=== PATIENT | male | born 1945 | race Two or more races ===

== ENCOUNTER 2018-04-27 14:46 | Inpatient (IN) | payer MEDICARE ==
--- NOTE | 2018-04-27 15:25 | C.PDOC ---
Time Seen by Provider: 04/27/18 15:04 Chief Complaint (Nursing): Medical Clearance Past Medical History Vital Signs: Last Vital Signs Temp 98.4 F 04/27/18 14:50 Pulse 105 H 04/27/18 14:50 Resp 20 04/27/18 14:50 BP 122/64 04/27/18 14:50 Pulse Ox 100 04/27/18 14:50 - Medical History PMH: Anemia, Arthritis, COPD, HTN, Hypercholesterolemia Surgical History: Cholecystectomy - Social History Hx Alcohol Use: No (Ex drinker) Hx Substance Use: No - Immunization History Hx Tetanus Toxoid Vaccination: No Hx Influenza Vaccination: Yes (12/2017) Hx Pneumococcal Vaccination: Yes (12/2017) ED Course And Treatment O2 Sat by Pulse Oximetry: 100 Disposition - Disposition
--- NOTE | 2018-04-27 15:26 | C.PDOC ---
History Of Present Illness 73 year old male brought in by request of Dr. Dasilva due to blood work showing a hemoglobin of 5.4. Patient has been experiencing SOB, weakness, and lightheadedness. Patient's states that they were in the [place] when these symptoms began. He has had CVA in the past and has been diagnosed with emphysema. Patient is not currently on a pacemaker and has no GI bleeds. He has a past medical history of diabetes, HTN, and HLD. Patient denies experiencing vomiting or diarrhea. Time Seen by Provider: 04/27/18 15:04 Chief Complaint (Nursing): Medical Clearance History Per: Patient, Family History/Exam Limitations: no limitations Onset/Duration Of Symptoms: Hrs Current Symptoms Are (Timing): Still Present Additional History Per: Patient, Family Past Medical History Reviewed: Historical Data, Nursing Documentation, Vital Signs Vital Signs: Last Vital Signs Temp 98.4 F 04/27/18 14:50 Pulse 105 H 04/27/18 14:50 Resp 20 04/27/18 14:50 BP 122/64 04/27/18 14:50 Pulse Ox 100 04/27/18 14:50 - Medical History PMH: Anemia, Arthritis, COPD, HTN, Hypercholesterolemia Surgical History: Cholecystectomy Family History: States: No Known Family Hx - Social History Hx Alcohol Use: No (Ex drinker) Hx Substance Use: No - Immunization History Hx Tetanus Toxoid Vaccination: No Hx Influenza Vaccination: Yes (12/2017) Hx Pneumococcal Vaccination: Yes (12/2017) Review Of Systems Constitutional: Positive for: Weakness. Negative for: Fever, Chills Cardiovascular: Positive for: Light Headedness. Negative for: Chest Pain, Palpitations Respiratory: Positive for: Shortness of Breath Gastrointestinal: Negative for: Nausea, Vomiting, Diarrhea Neurological: Positive for: Dizziness. Negative for: Weakness, Numbness Physical Exam - Physical Exam Additional Physical Exam Comments: Constitutional: No acute distress. Pale skin. Head: Normocephalic. Atraumatic. Eyes: PERRL. ENT: Moist mucous membranes. Neck: Supple. Cardiovascular: Regular rate. Radial pulse 2+ bilaterally. Chest: No tenderness. Respiratory: Crackles. GI: Soft. Nontender. Nondistended. Back: No CVA tenderness. Musculoskeletal: Bilateral lower extremity pitting edema. Skin: No rash. Neurologic: Alert, no focal deficit. ED Course And Treatment - Laboratory Results Result Diagrams: 04/27/18 15:33 02 15:33 O2 Sat by Pulse Oximetry: 100 (RA) Medical Decision Making Medical Decision Making: Plan: Labs ordered with type and screen. EKG and CXR ordered for patient. EKG: Sinus rhythm 91bpm , no ST elevations. CXR: IMPRESSION:No acute pulmonary pathology noted. Mild cardiomegaly probable. Other findings as above. Consented for transfusion. Dr. Lambert consulted. Dr. Jay accepts patient to her service. Disposition - Disposition Disposition: HOSPITALIZED Disposition Time: 15:33 Condition: GUARDED - Clinical Impression Clinical Impression: Symptomatic anemia - Scribe Statement The provider has reviewed the documentation as recorded by the Scribe (Selina Abdi) All medical record entries made by the Scribe were at my direction and personally dictated by me. I have reviewed the chart and agree that the record accurately reflects my personal performance of the history, physical exam, medical decision making, and the department course for this patient. I have also personally directed, reviewed, and agree with the discharge instructions and d isposition.
[2018-04-27 15:38] LABS: BASO % 0.9 % (0.0-2.0); EOS # 0.1 K/uL (0.0-0.7); EOS % 1.3 % (0.0-4.0); LYMPH # 0.7 K/uL (1.0-4.3); LYMPH % 16.1 % (20.0-40.0); MEAN CELL VOLUME 79.8 fL (80.0-94.0); MEAN CORPUSCULAR HGB CONC 28.8 g/dL (33.0-37.0); MEAN PLATELET VOLUME 9.6 fL (7.2-11.7); MONO # 0.4 K/uL (0.0-0.8); MONO % 8.9 % (0.0-10.0); NEUT # 3.4 K/uL (1.8-7.0); NEUT % 72.8 % (50.0-75.0); NRBC % 0.2 % (0.0-2.0); RBC 2.24 Mil/uL (4.40-5.90); RED CELL DISTRIBUTION WIDTH 19.5 % (11.5-14.5); WHITE BLOOD COUNT 4.7 K/uL (4.8-10.8)
[2018-04-27 15:47] LABS: PROTHROMBIN TIME 11.4 SECONDS (9.7-12.2)
[2018-04-27 15:49] LABS: ALB/GLOB RATIO 1.5 (1.0-2.1); ALBUMIN 4.3 g/dL (3.5-5.0); ALT/SGPT 25 U/L (21-72); AST/SGOT 16 U/L (17-59); BLOOD UREA NITROGEN 29 mg/dL (9-20); CALCIUM 9.8 mg/dl (8.6-10.4); GFR NON-AFRICAN AMERICAN 59
[2018-04-27 15:50] LABS: HEMOGLOBIN 5.1 g/dL (12.0-18.0)
--- NOTE | 2018-04-27 16:00 | RAD ---
Date of service: 04/27/2018 HISTORY: Anemia COMPARISON: No prior. FINDINGS: LUNGS: No active pulmonary disease. Lung volumes lower limits of normal. PLEURA: No significant pleural effusion identified, no pneumothorax apparent. CARDIOVASCULAR: No aortic atherosclerotic calcification present. Mild cardiomegaly suspect. No significant appearing pulmonary venous congestion. OSSEOUS STRUCTURES: Bilateral shoulder arthrosis. Right sternoclavicular hypertrophic arthrosis. VISUALIZED UPPER ABDOMEN: Normal. OTHER FINDINGS: None. IMPRESSION: No acute pulmonary pathology noted. Mild cardiomegaly probable Other findings as above.
[2018-04-27 16:01] LABS: B-TYPE NATRIURETIC PEPTIDE 236 pg/mL (0-900); CK-MB 4.41 ng/mL (0.0-3.38)
--- NOTE | 2018-04-27 18:50 | CP.PCM.HP ---
History of Present Illness - History of Present Illness History of Present Illness: cc: Weakness HPI: Pt is a 73 year old male who presented to Dr. Dasivla with a complaint of weakness. Pt had a hemoglobin of 5.7. His most recent hemoglobin in January was >11. Pt had anemia while in [facility] [place] last year, and per family had an EGD and Colonoscopy and nothing found. He was treated with iron infusion. Pt states that over the last one month he has been increasingly sob to the point that family has had to bathe him. Pt however denies any melena or vomiting blood. PT recenlty had his b jimy discontinues as some of his symptoms were thought to be due to b jimy. Medical Hx: Osteoarthritis Chronic Kidney Disease TIA history HTN Hyperlipidemia Diabetes 2 Surgical Hx: Gallbladder 2013 Family Hx: Mother-Vaginal cancer Father-cancer Social Hx: Smoke- quit 1999 No ETOH No Drugs Allergies: Sulfa Medications: Lantus 20 units qan Losartan 100mg qd Epidra 15 units with dinner Metformin 1000 bid aspitin 81 qd Present on Admission - Present on Admission Any Indicators Present on Admission: No History of DVT/PE: No History of Uncontrolled Diabetes: No Urinary Catheter: No Decubitus Ulcer Present: No Decubitus Ulcer Stage: Unstageable History Surgical Site Infection Following: None Review of Systems - Constitutional Constitutional: Fatigue, Lethargy, Weakness - EENT Eyes: absent: Diplopia Ears: absent: Decreased Hearing Nose/Mouth/Throat: absent: Nasal Congestion, Dry Mouth - Cardiovascular Cardiovascular: Dyspnea on Exertion, Lightheadedness. absent: Chest Pain, Edema - Respiratory Respiratory: Dyspnea, Wheezing - Gastrointestinal Gastrointestinal: absent: Abdominal Pain, Diarrhea - Genitourinary Genitourinary: absent: Change in Urinary Stream, Freq UTI - Musculoskeletal Musculoskeletal: Back Pain. absent: Abnormal Gait - Integumentary Integumentary: absent: Skin Ulcer - Neurological Neurological: Dizziness. absent: Abnormal Speech - Psychiatric Psychiatric: absent: Abnormal Sleep Pattern - Hematologic/Lymphatic Hematologic: absent: Easy Bleeding, Easy Bruising, Lymphadenopathy Past Patient History - Past Social History Smoking Status: Former Smoker - CARDIAC Hx Hypercholesterolemia: Yes Hx Hypertension: Yes - PULMONARY Hx Chronic Obstructive Pulmonary Disease (COPD): Yes - ENDOCRINE/METABOLIC Hx Diabetes Mellitus Type 2: Yes - HEMATOLOGICAL/ONCOLOGICAL Hx Anemia: Yes - MUSCULOSKELETAL/RHEUMATOLOGICAL Hx Arthritis: Yes - PSYCHIATRIC Hx Substance Use: No - SURGICAL HISTORY Hx Cholecystectomy: Yes - ANESTHESIA Hx Anesthesia: Yes Hx Anesthesia Reactions: No Meds Allergies/Adverse Reactions: Allergies Allergy/AdvReac Type Severity Reaction Status Date / Time Sulfa (Sulfonamide Allergy Severe ANAPHYLAXIS Verified 04/27/18 14:54 Antibiotics) Physical Exam - Constitutional Appears: No Acute Distress - Eye Exam Eye Exam: EOMI Additional comments: pale conjunctiva - Respiratory Exam Respiratory Exam: Clear to Auscultation Bilateral, NORMAL BREATHING PATTERN. absent: Decreased Breath Sounds, Rales, Stridor - Cardiovascular Exam Cardiovascular Exam: REGULAR RHYTHM, RRR, +S1, +S2. absent: JVD, Rubs - GI/Abdominal Exam GI & Abdominal Exam: Hernia, Normal Bowel Sounds, Soft Results - Vital Signs Recent Vital Signs: Last Vital Signs Temp 98.4 F 04/27/18 18:22 Pulse 88 04/27/18 18:22 Resp 18 04/27/18 18:22 BP 159/63 H 04/27/18 18:22 Pulse Ox 100 04/27/18 18:22 - Labs Result Diagrams: 04/27/18 15:33 04/27/18 15:33 Labs: Laboratory Results - last 24 hr 04/27/18 04/27/18 04/27/18 15:33 15:33 15:33 WBC 4.7 L RBC 2.24 L Hgb 5.1 L* Hct 17.9 L MCV 79.8 L MCH 23.0 L MCHC 28.8 L RDW 19.5 H Plt Count 275 MPV 9.6 Neut % (Auto) 72.8 Lymph % (Auto) 16.1 L [place] % (Auto) 8.9 Eos % (Auto) 1.3 Baso % (Auto) 0.9 Neut # (Auto) 3.4 Lymph # (Auto) 0.7 L [place] # (Auto) 0.4 Eos # (Auto) 0.1 Baso # (Auto) 0.0 PT 11.4 INR 1.0 APTT 32 Sodium 142 Potassium 4.6 Chloride 105 Carbon Dioxide 21 L Anion Gap 20 BUN 29 H Creatinine 1.2 Est GFR ( Amer) > 60 Est GFR (Non-Af Amer) 59 Random Glucose 114 H Calcium 9.8 Total Bilirubin 0.2 AST 16 L ALT 25 Alkaline Phosphatase 110 Total Creatine Kinase 155 CK-MB (Mass) 4.41 H Troponin I < 0.0120 NT-Pro-B Natriuret Pep 236 Total Protein 7.2 Albumin 4.3 Globulin 2.9 Albumin/Globulin Ratio 1.5 Blood Type Blood Type Confirm Antibody Screen 04/27/18 15:33 WBC RBC Hgb Hct MCV MCH MCHC RDW Plt Count MPV Neut % (Auto) Lymph % (Auto) [place] % (Auto) Eos % (Auto) Baso % (Auto) Neut # (Auto) Lymph # (Auto) [place] # (Auto) Eos # (Auto) Baso # (Auto) PT INR APTT Sodium Potassium Chloride Carbon Dioxide Anion Gap BUN Creatinine Est GFR ( Amer) Est GFR (Non-Af Amer) Random Glucose Calcium Total Bilirubin AST ALT Alkaline Phosphatase Total Creatine Kinase CK-MB (Mass) Troponin I NT-Pro-B Natriuret Pep Total Protein Albumin Globulin Albumin/Globulin Ratio Blood Type A POSITIVE Blood Type Confirm A POSITIVE Antibody Screen Negative Assessment & Plan - Assessment and Plan (Free Text) Assessment: Anemia acute on chronic most recent HG in January over 11 Pt had EGD and Colonocopy In and told no acive GI bleeding over a year ago who he had similar issues oxygen COPD; nebs Dr Dasilva bp; losartan hame some issues with b jimy per daughter other issues abd hernia back pain DM; hold insulin as npo but will cover with scale for now Gi; Fausto on consult, I discussed case over the phone with him. Cardio +ck mb but negative tropoin echo per cardio called his cardio on consult
[2018-04-27] MEDS ORDERED: Glucagon Recombinant 1 mg Inj IM PRN (19:42)
[2018-04-27] MEDS ORDERED: Dextrose 50% SYRINGE Inj (50 ml) IV PRN (19:42)
--- NOTE | 2018-04-27 20:12 | CP.PCM.CON ---
History of Present Illness - History of Present Illness History of Present Illness: Chief complaint: Shortness of breath HPI: 73-year-old male with history of osteoarthritis, chronic kidney disease, hypertension, hyperlipidemia, CAD, diabetes came to the office yesterday in my office, at that time patient was noted to have severe anemia, hemoglobin level was low, and patient came to the emergency room. Patient was complaining of increasing shortness of breath. He has a significant history of smoking. Almost a 2 pack/day for almost 45 years. Patient currently does not have a history of COPD, but he having more symptoms of shortness of breath increasingly worsening recently over the course of 2 years. He was seen by neurocritical care physician recently. He has a history of stent in the past. Cardiology point of view he is stable. He is having some difficult time even walking. Getting up and moving causing increasing tiredness fatigue and weakness. He is not using any oxygen or nebulizer in the house. Past medical history: Anemia iron deficiency history of an infection. CAD, COPD Surgical history: Cholecystectomy, prostate surgery Allergy allergic to sulfa Family history: Parents had a history of pelvic and colon cancer. Currently has 3 live siblings. He has 7 kids. Social history: Patient has a history of 2 pack/day smoking history for about 35 years, he quit 2000 Denies any alcohol. Review of system: Patient is having significant dyspnea even at rest. Difficult time in sleeping. He does up in the daytime easily. Difficult time in standing up and walking. His functional capacity being increasingly getting restricted now. He is having limited mobility because of the weakness tiredness fatigability. Shortness of breath noted. No urinary symptoms, but the constipation noted. Current medications noted from the chart. He is taking insulin, losartan, Apidra, metformin, and aspirin Clinical examination: Patient has a pale mucosa. Blood pressure stable. Chest decreased air entry in the lung morel noted. Heart sounds are regular Nontender abdomen. 1+ pedal edema noted in the lungs patient has a significant wheezing also noted Patient labs reviewed Hemoglobin is 5.1. Chest x-ray showing evidence of decreased lung volumes on the right side Assessment and recommendation: 73-year-old male with a history of possible CAD, hypertension diabetes. Peripheral neuropathy. History of significant smoking history. Underlying COPD likely. Emphysematous lung changes cannot be ruled out. I recommended CT scan of the lungs. Patient is now admitted to the hospital with acute shortness of breath. Severe anemia. GI evaluation is ongoing. Also receiving Protonix, blood transfusion. Cardiology evaluation is on. Continue the current treatment. We will follow the patient Past Patient History - Past Social History Smoking Status: Former Smoker - CARDIAC Hx Hypercholesterolemia: Yes Hx Hypertension: Yes - PULMONARY Hx Chronic Obstructive Pulmonary Disease (COPD): Yes - ENDOCRINE/METABOLIC Hx Diabetes Mellitus Type 2: Yes - HEMATOLOGICAL/ONCOLOGICAL Hx Anemia: Yes - MUSCULOSKELETAL/RHEUMATOLOGICAL Hx Arthritis: Yes - PSYCHIATRIC Hx Substance Use: No - SURGICAL HISTORY Hx Cholecystectomy: Yes - ANESTHESIA Hx Anesthesia: Yes Hx Anesthesia Reactions: No Meds Allergies/Adverse Reactions: Allergies Allergy/AdvReac Type Severity Reaction Status Date / Time Sulfa (Sulfonamide Allergy Severe ANAPHYLAXIS Verified 04/27/18 14:54 Antibiotics) Beta-Blockers Allergy ANAPHYLAXIS Verified 04/27/18 20:03 (Beta-Adrenergic Bloc - Medications Medications: Current Medications Acetaminophen (Tylenol 325mg Tab) 650 mg PO ONCE ONE Stop: 04/27/18 23:31 Dextrose (Dextrose 50% Inj) 0 ml IV STAT PRN; Protocol PRN Reason: Hypoglycemia Protocol Dextrose (Glutose 15) 0 gm PO ONCE PRN; Protocol PRN Reason: Hypoglycemia Protocol Diphenhydramine HCl (Benadryl) 12.5 mg PO ONCE ONE Stop: 04/27/18 23:31 Glucagon (Glucagen Diagnostic Kit) 0 mg IM STAT PRN; Protocol PRN Reason: Hypoglycemia Protocol Sodium Chloride (Sodium Chloride 0.45%) 1,000 mls @ 50 mls/hr IV .Q20H FARRUKH Dextrose (Dextrose 5% In Water 1000 Ml) 1,000 mls @ 0 mls/hr IV .Q0M PRN; Protocol PRN Reason: Hypoglycemia Protocol Insulin Human Regular (Novolin R) 0 unit SC ACHS FARRUKH; Protocol Losartan Potassium (Cozaar) 100 mg PO DAILY FARRUKH Pantoprazole Sodium (Protonix Inj) 40 mg IVP DAILY FARRUKH Results - Vital Signs Recent Vital Signs: Last Vital Signs Temp 98.4 F 04/27/18 18:22 Pulse 88 04/27/18 18:22 Resp 18 04/27/18 18:22 BP 159/63 H 04/27/18 18:22 Pulse Ox 100 04/27/18 18:22 - Labs Result Diagrams: 04/27/18 15:33 04/27/18 15:33 Labs: Laboratory Results - last 24 hr 04/27/18 04/27/18 04/27/18 15:33 15:33 15:33 WBC 4.7 L RBC 2.24 L Hgb 5.1 L* Hct 17.9 L MCV 79.8 L MCH 23.0 L MCHC 28.8 L RDW 19.5 H Plt Count 275 MPV 9.6 Neut % (Auto) 72.8 Lymph % (Auto) 16.[address] [place] % (Auto) 8.9 Eos % (Auto) 1.3 Baso % (Auto) 0.9 Neut # (Auto) 3.4 Lymph # (Auto) 0.[address] [place] # (Auto) 0.4 Eos # (Auto) 0.1 Baso # (Auto) 0.0 PT 11.4 INR 1.0 APTT 32 Sodium 142 Potassium 4.6 Chloride 105 Carbon Dioxide 21 L Anion Gap 20 BUN 29 H Creatinine 1.2 Est GFR ( Amer) > 60 Est GFR (Non-Af Amer) 59 Random Glucose 114 H Calcium 9.8 Total Bilirubin 0.2 AST 16 L ALT 25 Alkaline Phosphatase 110 Total Creatine Kinase 155 CK-MB (Mass) 4.41 H Troponin I < 0.0120 NT-Pro-B Natriuret Pep 236 Total Protein 7.2 Albumin 4.3 Globulin 2.9 Albumin/Globulin Ratio 1.5 Blood Type Blood Type Confirm Antibody Screen 04/27/18 15:33 WBC RBC Hgb Hct MCV MCH MCHC RDW Plt Count MPV Neut % (Auto) Lymph % (Auto) [place] % (Auto) Eos % (Auto) Baso % (Auto) Neut # (Auto) Lymph # (Auto) [place] # (Auto) Eos # (Auto) Baso # (Auto) PT INR APTT Sodium Potassium Chloride Carbon Dioxide Anion Gap BUN Creatinine Est GFR ( Amer) Est GFR (Non-Af Amer) Random Glucose Calcium Total Bilirubin AST ALT Alkaline Phosphatase Total Creatine Kinase CK-MB (Mass) Troponin I NT-Pro-B Natriuret Pep Total Protein Albumin Globulin Albumin/Globulin Ratio Blood Type A POSITIVE Blood Type Confirm A POSITIVE Antibody Screen Negative
[2018-04-27] MEDS: (Novolin R) Insulin Human Regular 100 units/ml vial SC SCH (22:35)
[2018-04-27] MEDS ORDERED: DiphenhydrAMINE 12.5 mg/5 ml LIQ UD (5 ml) PO ONE (23:30)
[2018-04-28] MEDS ORDERED: DiphenhydrAMINE 12.5 mg/5 ml LIQ UD (5 ml) PO ONE (00:01)
[2018-04-28] MEDS: Albuterol-Ipratrop 3 mg / 0.5 (3 ml) UD INH SCH ×4 (01:10→20:30)
[2018-04-28] MEDS: Sodium Chloride 0.45% 1,000 ML IV SCH (05:30)
--- NOTE | 2018-04-28 07:44 | CP.PCM.CON ---
History of Present Illness - History of Present Illness History of Present Illness: This is a 73 year old man known to me from the office who was admitted with anemia. Patient noted progressive shortness of breath dizziness and lightheadedness over the past month. He denies having abdominal pain, nausea, vomiting, heartburn, diarrhea, constipation, rectal bleeding and melena. He was referred to the ER when routine blood work showed a HGB of 5.4. Recent blood work in January, showed HGB 11. The last colonosocpy was in 2010 and showed diverticulosis and hyperplastic polyps. The last EGD was in 2009 and showed non-erosive gastritis and a duodenal ulcer. He was treated for H pylori infection at that time. 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 Review of Systems - Review of Systems All systems: reviewed and no additional remarkable complaints except - Constitutional Constitutional: Fatigue, Weakness - EENT Eyes: absent: Diplopia Ears: absent: Decreased Hearing Nose/Mouth/Throat: absent: Dry Mouth - Cardiovascular Cardiovascular: Dyspnea on Exertion, Lightheadedness. absent: Chest Pain - Respiratory Respiratory: Dyspnea, Wheezing - Gastrointestinal Gastrointestinal: absent: Abdominal Pain, Constipation, Diarrhea, Heartburn, Hematochezia, Melena, Nausea, Vomiting - Genitourinary Genitourinary: absent: Change in Urinary Stream - Musculoskeletal Musculoskeletal: Back Pain Past Patient History - Past Medical History & Family History Past Medical History?: Yes - Past Social History Smoking Status: Former Smoker - CARDIAC Hx Hypercholesterolemia: Yes Hx Hypertension: Yes - PULMONARY Hx Chronic Obstructive Pulmonary Disease (COPD): Yes - ENDOCRINE/METABOLIC Hx Diabetes Mellitus Type 2: Yes - HEMATOLOGICAL/ONCOLOGICAL Hx Anemia: Yes - MUSCULOSKELETAL/RHEUMATOLOGICAL Hx Arthritis: Yes - PSYCHIATRIC Hx Substance Use: No - SURGICAL HISTORY Hx Cholecystectomy: Yes - ANESTHESIA Hx Anesthesia: Yes Hx Anesthesia Reactions: No Meds Allergies/Adverse Reactions: Allergies Allergy/AdvReac Type Severity Reaction Status Date / Time Sulfa (Sulfonamide Allergy Severe ANAPHYLAXIS Verified 04/27/18 14:54 Antibiotics) Beta-Blockers Allergy ANAPHYLAXIS Verified 04/27/18 20:03 (Beta-Adrenergic Bloc - Medications Medications: Current Medications Albuterol/Ipratropium (Duoneb 3 Mg/0.5 Mg (3 Ml) Ud) 3 ml INH RQ6 FARRUKH Last Admin: 04/28/18 01:10 Dose: Not Given Dextrose (Dextrose 50% Inj) 0 ml IV STAT PRN; Protocol PRN Reason: Hypoglycemia Protocol Dextrose (Glutose 15) 0 gm PO ONCE PRN; Protocol PRN Reason: Hypoglycemia Protocol Glucagon (Glucagen Diagnostic Kit) 0 mg IM STAT PRN; Protocol PRN Reason: Hypoglycemia Protocol Sodium Chloride (Sodium Chloride 0.45%) 1,000 mls @ 50 mls/hr IV .Q20H FARRUKH Last Admin: 04/28/18 05:30 Dose: 50 mls/hr Dextrose (Dextrose 5% In Water 1000 Ml) 1,000 mls @ 0 mls/hr IV .Q0M PRN; Pr otocol PRN Reason: Hypoglycemia Protocol Insulin Human Regular (Novolin R) 0 unit SC ACHS FARRUKH; Protocol Last Admin: 04/27/18 22:35 Dose: Not Given Losartan Potassium (Cozaar) 100 mg PO DAILY [facility] Pantoprazole Sodium (Protonix Inj) 40 mg IVP DAILY [facility] Tiotropium [place] (Spiriva) 18 mcg INH RQ24 FARRUKH Tiotropium [place] (Spiriva Inhalation Handihaler Device) 1 inhaler INH ONCE ONE Stop: 04/28/18 08:01 Physical Exam - Constitutional Appears: No Acute Distress - Head Exam Head Exam: ATRAUMATIC, NORMOCEPHALIC - Eye Exam Eye Exam: EOMI, PERRL - Neck Exam Neck exam: Negative for: Lymphadenopathy, Thyromegaly - Respiratory Exam Respiratory Exam: NORMAL BREATHING PATTERN. absent: Rales, Rhonchi, Wheezes - Cardiovascular Exam Cardiovascular Exam: REGULAR RHYTHM, +S1, +S2. absent: Gallop, Rubs, Systolic Murmur - GI/Abdominal Exam GI & Abdominal Exam: Distended, Normal Bowel Sounds, Soft. absent: Mass, Organomegaly, Tenderness - Rectal Exam Rectal Exam: Deferred - Extremities Exam Extremities exam: Negative for: calf tenderness, pedal edema Results - Vital Signs Recent Vital Signs: Last Vital Signs Temp 98.4 F 04/28/18 05:15 Pulse 76 04/28/18 05:15 Resp 20 04/28/18 05:15 BP 140/76 04/28/18 05:15 Pulse Ox 100 04/27/18 23:35 - Labs Result Diagrams: 04/27/18 15:33 04/27/18 15:33 Labs: Laboratory Results - last 24 hr 04/27/18 04/27/18 04/27/18 15:33 15:33 15:33 WBC 4.7 L RBC 2.24 L Hgb 5.1 L* Hct 17.9 L MCV 79.8 L MCH 23.0 L MCHC 28.8 L RDW 19.5 H Plt Count 275 MPV 9.6 Neut % (Auto) 72.8 Lymph % (Auto) 16.1 L [place] % (Auto) 8.9 Eos % (Auto) 1.3 Baso % (Auto) 0.9 Neut # (Auto) 3.4 Lymph # (Auto) 0.7 L [place] # (Auto) 0.4 Eos # (Auto) 0.1 Baso # (Auto) 0.0 PT 11.4 INR 1.0 APTT 32 Sodium 142 Potassium 4.6 Chloride 105 Carbon Dioxide 21 L Anion Gap 20 BUN 29 H Creatinine 1.2 Est GFR ( Amer) > 60 Est GFR (Non-Af Amer) 59 Random Glucose 114 H Calcium 9.8 Total Bilirubin 0.2 AST 16 L ALT 25 Alkaline Phosphatase 110 Total Creatine Kinase 155 CK-MB (Mass) 4.41 H Troponin I < 0.0120 NT-Pro-B Natriuret Pep 236 Total Protein 7.2 Albumin 4.3 Globulin 2.9 Albumin/Globulin Ratio 1.5 Blood Type Blood Type Confirm Antibody Screen 04/27/18 15:33 WBC RBC Hgb Hct MCV MCH MCHC RDW Plt Count MPV Neut % (Auto) Lymph % (Auto) [place] % (Auto) Eos % (Auto) Baso % (Auto) Neut # (Auto) Lymph # (Auto) [place] # (Auto) Eos # (Auto) Baso # (Auto) PT INR APTT Sodium Potassium Chloride Carbon Dioxide Anion Gap BUN Creatinine Est GFR ( Amer) Est GFR (Non-Af Amer) Random Glucose Calcium Total Bilirubin AST ALT Alkaline Phosphatase Total Creatine Kinase CK-MB (Mass) Troponin I NT-Pro-B Natriuret Pep Total Protein Albumin Globulin Albumin/Globulin Ratio Blood Type A POSITIVE Blood Type Confirm A POSITIVE Antibody Screen Negative Assessment & Plan - Assessment and Plan (Free Text) Assessment: Patient with subacute onset of anemia, with borderline MCV. He has a history of peptic ulcer disease and H pylori infection which was treated in 2009. He also has a history of cervical spinal stenosis and, on admission, an elevated CPK-MB. We will repeat stool H pylori and await clearance for EGD from cardiology and Dr. Buckley.
[2018-04-28] MEDS: (Novolin R) Insulin Human Regular 100 units/ml vial SC SCH ×3 (07:45→22:05)
[2018-04-28] MEDS: Tiotropium 18 mcg Cap For Inhalation INH SCH (08:43)
--- NOTE | 2018-04-28 09:09 | CP.PCM.CON ---
History of Present Illness - History of Present Illness History of Present Illness: The pt is a 73 yo man with copd, ex heavy smoker for man years, and a c cath in the past demonstrating moderate 3 vessel CAD. Pt has not had NE of stents. Pt had increasing dyspnea, and Hgb found to be 5.1. Pt has received transfusion. ECG demonstrates nsr with artifact, no ischemic changes, and echo today reveals normal LV EF and doppler. Pt has no chest pain. OPt has a h/o treated h pylori gastritis in 2009. He has severe cervical disc disease and spinal stenosis. Review of Systems - Review of Systems All systems: reviewed and no additional remarkable complaints except (as above) Past Patient History - Past Medical History & Family History Past Medical History?: Yes - Past Social History Smoking Status: Former Smoker - CARDIAC Hx Hypercholesterolemia: Yes Hx Hypertension: Yes - PULMONARY Hx Chronic Obstructive Pulmonary Disease (COPD): Yes - ENDOCRINE/METABOLIC Hx Diabetes Mellitus Type 2: Yes - HEMATOLOGICAL/ONCOLOGICAL Hx Anemia: Yes - MUSCULOSKELETAL/RHEUMATOLOGICAL Hx Arthritis: Yes - PSYCHIATRIC Hx Substance Use: No - SURGICAL HISTORY Hx Cholecystectomy: Yes - ANESTHESIA Hx Anesthesia: Yes Hx Anesthesia Reactions: No Meds Allergies/Adverse Reactions: Allergies Allergy/AdvReac Type Severity Reaction Status Date / Time Sulfa (Sulfonamide Allergy Severe ANAPHYLAXIS Verified 04/27/18 14:54 Antibiotics) Beta-Blockers Allergy ANAPHYLAXIS Verified 04/27/18 20:03 (Beta-Adrenergic Bloc - Medications Medications: Current Medications Albuterol/Ipratropium (Duoneb 3 Mg/0.5 Mg (3 Ml) Ud) 3 ml INH RQ6 [facility] Last Admin: 04/28/18 08:43 Dose: Not Given Dextrose (Dextrose 50% Inj) 0 ml IV STAT PRN; Protocol PRN Reason: Hypoglycemia Protocol Dextrose (Glutose 15) 0 gm PO ONCE PRN; Protocol PRN Reason: Hypoglycemia Protocol Glucagon (Glucagen Diagnostic Kit) 0 mg IM STAT PRN; Protocol PRN Reason: Hypoglycemia Protocol Sodium Chloride (Sodium Chloride 0.45%) 1,000 mls @ 50 mls/hr IV .Q20H [facility] Last Admin: 04/28/18 05:30 Dose: 50 mls/hr Dextrose (Dextrose 5% In Water 1000 Ml) 1,000 mls @ 0 mls/hr IV .Q0M PRN; Protocol PRN Reason: Hypoglycemia Protocol Insulin Human Regular (Novolin R) 0 unit SC ACHS [facility]; Protocol Last Admin: 04/28/18 07:45 Dose: Not Given Losartan Potassium (Cozaar) 100 mg PO DAILY [facility] Pantoprazole Sodium (Protonix Inj) 40 mg IVP DAILY [facility] Tiotropium [place] (Spiriva) 18 mcg INH RQ24 [facility] Last Admin: 04/28/18 08:43 Dose: Not Given Physical Exam - Head Exam Head Exam: ATRAUMATIC - Eye Exam Eye Exam: EOMI - ENT Exam ENT Exam: Mucous Membranes Moist - Neck Exam Neck exam: Positive for: Normal Inspection - Respiratory Exam Respiratory Exam: NORMAL BREATHING PATTERN - Cardiovascular Exam Cardiovascular Exam: REGULAR RHYTHM - Exam External exam: NORMAL EXTERNAL EXAM - Extremities Exam Extremities exam: Positive for: normal inspection - Back Exam Back exam: NORMAL INSPECTION - Neurological Exam Neurological exam: Alert, Altered, CN II-XII Intact, Reflexes Normal - Psychiatric Exam Psychiatric exam: Normal Mood - Skin Skin Exam: Normal Color, Warm Results - Vital Signs Recent Vital Signs: Last Vital Signs Temp 98.2 F 04/28/18 07:00 Pulse 81 04/28/18 08:05 Resp 20 04/28/18 07:00 BP 129/67 04/28/18 07:00 Pulse Ox 99 04/28/18 07:00 - Labs Result Diagrams: 04/27/18 15:33 04/27/18 15:33 Labs: Laboratory Results - last 24 hr 04/27/18 04/27/18 04/27/18 15:33 15:33 15:33 WBC 4.7 L RBC 2.24 L Hgb 5.1 L* Hct 17.9 L MCV 79.8 L MCH 23.0 L MCHC 28.8 L RDW 19.5 H Plt Count 275 MPV 9.6 Neut % (Auto) 72.8 Lymph % (Auto) 16.1 L [place] % (Auto) 8.9 Eos % (Auto) 1.3 Baso % (Auto) 0.9 Neut # (Auto) 3.4 Lymph # (Auto) 0.7 L [place] # (Auto) 0.4 Eos # (Auto) 0.1 Baso # (Auto) 0.0 PT 11.4 INR 1.0 APTT 32 Sodium 142 Potassium 4.6 Chloride 105 Carbon Dioxide 21 L Anion Gap 20 BUN 29 H Creatinine 1.2 Est GFR ( Amer) > 60 Est GFR (Non-Af Amer) 59 POC Glucose (mg/dL) Random Glucose 114 H Calcium 9.8 Total Bilirubin 0.2 AST 16 L ALT 25 Alkaline Phosphatase 110 Total Creatine Kinase 155 CK-MB (Mass) 4.41 H Troponin I < 0.0120 NT-Pro-B Natriuret Pep 236 Total Protein 7.2 Albumin 4.3 Globulin 2.9 Albumin/Globulin Ratio 1.5 Blood Type Blood Type Confirm Antibody Screen 04/27/18 04/27/18 04/28/18 15:33 20:49 06:26 WBC RBC Hgb Hct MCV MCH MCHC RDW Plt Count MPV Neut % (Auto) Lymph % (Auto) [place] % (Auto) Eos % (Auto) Baso % (Auto) Neut # (Auto) Lymph # (Auto) [place] # (Auto) Eos # (Auto) Baso # (Auto) PT INR APTT Sodium Potassium Chloride Carbon Dioxide Anion Gap BUN Creatinine Est GFR ( Amer) Est GFR (Non-Af Amer) POC Glucose (mg/dL) 127 H 141 H Random Glucose Calcium Total Bilirubin AST ALT Alkaline Phosphatase Total Creatine Kinase CK-MB (Mass) Troponin I NT-Pro-B Natriuret Pep Total Protein Albumin Globulin Albumin/Globulin Ratio Blood Type A POSITIVE Blood Type Confirm A POSITIVE Antibody Screen Negative - EKG Data EKG Interpreted by: Myself EKG shows normal: Sinus rhythm Rate: Normal (nromal) Assessment & Plan - Assessment and Plan (Free Text) Assessment: 1. Stable CAD, moderate last cath, normal LV EF. No evidence of ischemia. Pt is cleared for egd.
--- NOTE | 2018-04-28 10:49 | CARD ---
APPROVED REPORT Date of service: 04/27/2018 EKG Measurement Heart [id number] <Conclusion> Sinus rhythm ,minor non specific st t changes.
--- NOTE | 2018-04-28 11:00 | CT ---
Date of service: 04/28/2018 CT chest without IV contrast Indication: pna Technique: Contiguous axial images were obtained through the chest without intravenous contrast enhancement. Sagittal and coronal reconstructions were generated and reviewed. This CT exam was performed using 1 or more of the following dose reduction techniques: Automated exposure control, adjustment of the MAA and/or kV according to patient size, and/or use of iterative reconstruction technique. Radiation dose (DLP): 896.91 MGy-cm. Comparison: Chest x-ray performed 04/27/18 Findings: Examination limited due to patient difficulty with breath hold, positioning, and motion artifact. Visualized portions of the inferior thyroid gland appear heterogeneous. The mediastinal and hilar vascular structures appear within normal limits. Cardiomegaly. Coronary artery calcifications. Atherosclerotic calcifications of the aorta. Mild bibasilar atelectasis. No focal consolidation. No pleural effusion. No pneumothorax. Small hiatal hernia/distal esophageal wall thickening. Elevation of the right hemidiaphragm. Limited visualization of the noncontrast upper abdomen: Bilateral nodular adrenal gland hypertrophy. Evidence of 11 x 6 mm hypodense right adrenal nodule measuring approximately -13 HU consistent with an adenoma. Degenerative changes. Impression: Examination limited due to patient difficulty with breath hold and positioning. Mild bibasilar atelectasis. Heterogeneous appearance of the included portions of the inferior thyroid gland. Suggest further evaluation with thyroid ultrasound if indicated. Cardiomegaly. Coronary artery calcifications. Atherosclerotic calcifications. Small hiatal hernia/distal esophageal wall thickening. Elevation of the right hemidiaphragm. Limited visualization of the noncontrast upper abdomen: Bilateral nodular adrenal gland hypertrophy. Evidence of 11 x 6 mm hypodense right adrenal nodule measuring approximately -13 HU consistent with an adenoma.
[2018-04-28 11:39] LABS: MEAN CELL VOLUME 81.7 fL (80.0-94.0); MEAN CORPUSCULAR HEMOGLOBIN 25.4 pg (27.0-31.0); MEAN CORPUSCULAR HGB CONC 31.1 g/dL (33.0-37.0); MEAN PLATELET VOLUME 9.9 fL (7.2-11.7); RBC 2.81 Mil/uL (4.40-5.90); RED CELL DISTRIBUTION WIDTH 18.6 % (11.5-14.5); WHITE BLOOD COUNT 4.2 K/uL (4.8-10.8)
[2018-04-28 11:45] LABS: HEMOGLOBIN 7.1 g/dL (12.0-18.0)
--- NOTE | 2018-04-28 11:49 | CARD ---
APPROVED REPORT Date of service: 04/28/2018 EXAM: Two-dimensional and M-mode echocardiogram with Doppler and color Doppler. INDICATION CVA/TIA Dyspnea RISK FACTORS Hypertension Hyperlipidemia Diabetes 2D DIMENSIONS IVSd1.5 (0.7-1.1cm)LVDd4.5 (3.9-5.9cm) PWd1.4 (0.7-1.1cm)LA Crjtze27 (18-58mL) LVDs2.3 (2.5-4.0cm)FS (%) 48.0 % LVEF (%)79.5 (>50%)LVEF (Zazueta's)69.74 % IVC0.00 cm M-Mode DIMENSIONS RVDd1.46 (2.1-3.2cm)Left Atrium (MM)3.99 (2.5-4.0cm) IVSd1.39 (0.7-1.1cm)Aortic Root3.60 (2.2-3.7cm) LVDd5.03 (4.0-5.6cm)Aortic Cusp Exc.2.02 (1.5-2.0cm) PWd1.49 (0.7-1.1cm)FS (%) 48 % LVDs2.60 (2.0-3.8cm)LVEF (%)79 (>50%) Aortic Valve AoV Peak Rvkrwttm568.3cm/sAoV VTI52.1cmAO Peak GR.24mmHg LVOT Peak Fhfztoim679.7cm/sLVOT VTI25.83cmAO Mean GR.12mmHg Mitral Valve MV E Crfrlath731.1cm/sMV A Lkgtymsa483.4cm/sE/A ratio1.2 IQOZ069.77 cm/s TDI Lateral E' Peak V7.58cm/sMedial E' Peak V6.55cm/sE/Lateral E'15.4 E/Medial E'17.9 Tricuspid Valve TR Peak Vfexaqya379rg/sTR Peak Gr.47yqXuROLP91ptMz LEFT VENTRICLE The left ventricle is normal size. There is mild to moderate concentric left ventricular hypertrophy. The Ejection Fraction is 60-65%. There is normal LV segmental wall motion. Transmitral Doppler flow pattern is Grade II-pseudonormal filling dynamics. The left atrial pressure is mildly elevated. RIGHT VENTRICLE The right ventricle is normal size. The right ventricular systolic function is normal. ATRIA The left atrium is mildly dilated. The right atrium size is normal. The interatrial septum is intact with no evidence for an atrial septal defect. AORTIC VALVE The aortic valve is mildly sclerotic. The aortic valve is trileaflet. No aortic regurgitation is present. av peak/mean gradinet of 24/12 mm of hg.visually there is no as. MITRAL VALVE The mitral valve is normal in structure. Mitral regurgitation is mild. TRICUSPID VALVE The tricuspid valve is normal in structure. There is mild tricuspid regurgitation. Right ventricular systolic pressure is estimated at 55 mmHg. There is moderate pulmonary hypertension. PULMONIC VALVE The pulmonary valve is normal in structure. GREAT VESSELS The aortic root is normal size. The aortic root displays mild sclerocalcific changes of the aortic root. The IVC is normal in size and collapses >50% with inspiration. PERICARDIAL EFFUSION There is no pericardial effusion. <Conclusion> The left ventricle is normal size. There is mild to moderate concentric left ventricular hypertrophy. The Ejection Fraction is 60-65%. Transmitral Doppler flow pattern is Grade II-pseudonormal filling dynamics. The left atrial pressure is mildly elevated. The left atrium is mildly dilated. The aortic valve is mildly sclerotic. The aortic valve is trileaflet. av peak/mean gradinet of 24/12 mm of hg.visually there is no as. Mitral regurgitation is mild. There is mild tricuspid regurgitation. Right ventricular systolic pressure is estimated at 55 mmHg. There is moderate pulmonary hypertension. The aortic root is normal size. The aortic root displays mild sclerocalcific changes of the aortic root. The IVC is normal in size and collapses >50% with inspiration. There is no pericardial effusion.
[2018-04-28 11:56] LABS: IRON 20 ug/dL (49-181)
[2018-04-28 12:08] LABS: % IRON SATURATION 4 (20-55); TOTAL IRON BINDING CAPACITY 477 ug/dL (250-450)
[2018-04-28 12:09] LABS: BLOOD UREA NITROGEN 20 mg/dL (9-20); CALCIUM 8.8 mg/dl (8.6-10.4); GFR NON-AFRICAN AMERICAN > 60
[2018-04-28 12:11] LABS: CK-MB 3.67 ng/mL (0.0-3.38)
[2018-04-28 12:33] LABS: FERRITIN 5.3 ng/mL
--- NOTE | 2018-04-28 21:08 | CP.PCM.PN ---
Subjective - Date & Time of Evaluation Date of Evaluation: 04/28/18 Time of Evaluation: 21:06 - Subjective Subjective: Patient today seen by cardiology, rehabilitation assistant. No active bleeding noted. He is feeling slightly better. Less shortness of breath noted. Stiffness of the neck noted. Vital signs stable. Chest clear Heart sounds are normal Labs reviewed Improvement in the hemoglobin noted. CT scan of the chest showing no evidence of any lung mass. No emphysematous changes noted, but underlying changes of lung volume reduced bilaterally more on the right side. Assessment and recommendation: 73-year-old male with history of chronic disease. Chronic COPD, chronic smoker. Admitted with possible GI bleed with anemia. Symptomatic. Continue the current treatment. GI evaluation and follow-up recommended Pulmonary point of view patient is clinically stable Patient may need PFT as an outpatient Objective - Vital Signs/Intake and Output Vital Signs (last 24 hours): Temp Pulse Resp BP Pulse Ox 98.0 F 72 18 144/66 99 04/28/18 19:33 04/28/18 19:33 04/28/18 19:33 04/28/18 19:33 04/28/18 07:00 Intake and Output: 04/28/18 04/29/18 18:59 06:59 Intake Total 0 Balance 0 - Medications Medications: Current Medications Acetaminophen (Tylenol 325mg Tab) 650 mg PO ONCE PRN PRN Reason: Prior to PRBC transfusion Last Admin: 04/28/18 18:08 Dose: 650 mg Albuterol/Ipratropium (Duoneb 3 Mg/0.5 Mg (3 Ml) Ud) 3 ml INH RQ6 [facility] Last Admin: 04/28/18 20:30 Dose: 3 ml Dextrose (Dextrose 50% Inj) 0 ml IV STAT PRN; Protocol PRN Reason: Hypoglycemia Protocol Dextrose (Glutose 15) 0 gm PO ONCE PRN; Protocol PRN Reason: Hypoglycemia Protocol Diphenhydramine HCl (Benadryl) 25 mg PO ONCE PRN PRN Reason: Prior to blood transfusion Last Admin: 04/28/18 18:08 Dose: 25 mg Glucagon (Glucagen Diagnostic Kit) 0 mg IM STAT PRN; Protocol PRN Reason: Hypoglycemia Protocol Sodium Chloride (Sodium Chloride 0.45%) 1,000 mls @ 50 mls/hr IV .Q20H [facility] Last Admin: 04/28/18 05:30 Dose: 50 mls/hr Dextrose (Dextrose 5% In Water 1000 Ml) 1,000 mls @ 0 mls/hr IV .Q0M PRN; Dionisio col PRN Reason: Hypoglycemia Protocol Insulin Human Regular (Novolin R) 0 unit SC ACHS [facility]; Protocol Last Admin: 04/28/18 17:17 Dose: Not Given Losartan Potassium (Cozaar) 100 mg PO DAILY [facility] Pantoprazole Sodium (Protonix Inj) 40 mg IVP DAILY [facility] Tiotropium [place] (Spiriva) 18 mcg INH RQ24 [facility] Last Admin: 04/28/18 08:43 Dose: Not Given - Labs Labs: 04/28/18 11:30 04/28/18 11:30 PT 11.4 SECONDS (9.7-12.2) 04/27/18 15:33 INR 1.0 04/27/18 15:33 APTT 32 SECONDS (21-34) 04/27/18 15:33
--- NOTE | 2018-04-28 22:23 | CP.PCM.PN ---
Subjective - Date & Time of Evaluation Date of Evaluation: 04/28/18 Time of Evaluation: 22:23 - Subjective Subjective: Pt states he feels stronger today, no sob no dizzy pt is currently receiving this 3rd unit of blood for a hemoglobin of 5 Objective - Vital Signs/Intake and Output Vital Signs (last 24 hours): Temp Pulse Resp BP Pulse Ox 98.0 F 72 18 144/66 99 04/28/18 19:33 04/28/18 19:33 04/28/18 19:33 04/28/18 19:33 04/28/18 07:00 Intake and Output: 04/28/18 04/29/18 18:59 06:59 Intake Total 0 Balance 0 - Medications Medications: Current Medications Acetaminophen (Tylenol 325mg Tab) 650 mg PO ONCE PRN PRN Reason: Prior to PRBC transfusion Last Admin: 04/28/18 18:08 Dose: 650 mg Albuterol/Ipratropium (Duoneb 3 Mg/0.5 Mg (3 Ml) Ud) 3 ml INH RQ6 [facility] Last Admin: 04/28/18 20:30 Dose: 3 ml Dextrose (Dextrose 50% Inj) 0 ml IV STAT PRN; Protocol PRN Reason: Hypoglycemia Protocol Dextrose (Glutose 15) 0 gm PO ONCE PRN; Protocol PRN Reason: Hypoglycemia Protocol Diphenhydramine HCl (Benadryl) 25 mg PO ONCE PRN PRN Reason: Prior to blood transfusion Last Admin: 04/28/18 18:08 Dose: 25 mg Glucagon (Glucagen Diagnostic Kit) 0 mg IM STAT PRN; Protocol PRN Reason: Hypoglycemia Protocol Sodium Chloride (Sodium Chloride 0.45%) 1,000 mls @ 50 mls/hr IV .Q20H [facility] Last Admin: 04/28/18 05:30 Dose: 50 mls/hr Dextrose (Dextrose 5% In Water 1000 Ml) 1,000 mls @ 0 mls/hr IV .Q0M PRN; Protocol PRN Reason: Hypoglycemia Protocol Insulin Human Regular (Novolin R) 0 unit SC ACHS [facility]; Protocol Last Admin: 04/28/18 22:05 Dose: Not Given Losartan Potassium (Cozaar) 100 mg PO DAILY [facility] Pantoprazole Sodium (Protonix Inj) 40 mg IVP DAILY [facility] Tiotropium [place] (Spiriva) 18 mcg INH RQ24 [facility] Last Admin: 04/28/18 08:43 Dose: Not Given - Labs Labs: 04/28/18 11:30 04/28/18 11:30 PT 11.4 SECONDS (9.7-12.2) 04/27/18 15:33 INR 1.0 04/27/18 15:33 APTT 32 SECONDS (21-34) 04/27/18 15:33 - Constitutional Appears: Well, Non-toxic - Eye Exam Eye Exam: Normal appearance - ENT Exam ENT Exam: Mucous Membranes Moist - Neck Exam Neck Exam: Full ROM - Cardiovascular Exam Cardiovascular Exam: REGULAR RHYTHM, RRR, +S1, +S2. absent: JVD - GI/Abdominal Exam GI & Abdominal Exam: Soft, Hernia, Normal Bowel Sounds - Extremities Exam Extremities Exam: Full ROM. absent: Pedal Edema, Tenderness Assessment and Plan - Assessment and Plan (Free Text) Assessment: Anemia positive stool for blood receiving third unit of prbc for symptomatic anemia gi eval appreciated read Dr. Lambert note pt has not have any neck surgery will discuss need for neurosurgical clearance with Dr. Tipton bp; not ideal but getting a transfussion now diabetes resume insulin once increase po intake cbc in AM pt cleared by cardio for endoscopies
[2018-04-29] MEDS: Albuterol-Ipratrop 3 mg / 0.5 (3 ml) UD INH SCH ×4 (01:53→19:30)
[2018-04-29 07:13] LABS: EOS # 0.1 K/uL (0.0-0.7); EOS % 2.7 % (0.0-4.0); HEMOGLOBIN 8.4 g/dL (12.0-18.0); LYMPH # 0.8 K/uL (1.0-4.3); LYMPH % 17.3 % (20.0-40.0); MEAN CELL VOLUME 82.4 fL (80.0-94.0); MEAN CORPUSCULAR HEMOGLOBIN 26.8 pg (27.0-31.0); MEAN CORPUSCULAR HGB CONC 32.5 g/dL (33.0-37.0); MEAN PLATELET VOLUME 9.5 fL (7.2-11.7); MONO # 0.5 K/uL (0.0-0.8); MONO % 10.6 % (0.0-10.0); NEUT % 68.4 % (50.0-75.0); RBC 3.15 Mil/uL (4.40-5.90); RED CELL DISTRIBUTION WIDTH 17.8 % (11.5-14.5); WHITE BLOOD COUNT 4.4 K/uL (4.8-10.8)
[2018-04-29 07:22] LABS: BLOOD UREA NITROGEN 14 mg/dL (9-20); CALCIUM 8.6 mg/dl (8.6-10.4); GFR NON-AFRICAN AMERICAN > 60
[2018-04-29] MEDS: Tiotropium 18 mcg Cap For Inhalation INH SCH (07:43)
--- NOTE | 2018-04-29 08:05 | CP.PCM.PN ---
Subjective - Date & Time of Evaluation Date of Evaluation: 04/29/18 Time of Evaluation: 08:02 - Subjective Subjective: Covering Dr Lambert f/u anemia OB positive stool. Hgb up to 8 after transfusion. Dark BMs but not melenic. Severe cervical spine disease Cleared by Cardiology for EGD, awaiting Ortho clearance Objective - Vital Signs/Intake and Output Vital Signs (last 24 hours): Temp Pulse Resp BP Pulse Ox 98.0 F 77 20 153/75 H 97 04/29/18 07:00 04/29/18 07:00 04/29/18 07:00 04/29/18 07:00 04/29/18 07:00 Intake and Output: 04/29/18 04/29/18 06:59 18:59 Intake Total 325 Output Total 500 Balance -175 - Medications Medications: Current Medications Acetaminophen (Tylenol 325mg Tab) 650 mg PO ONCE PRN PRN Reason: Prior to PRBC transfusion Last Admin: 04/28/18 18:08 Dose: 650 mg Albuterol/Ipratropium (Duoneb 3 Mg/0.5 Mg (3 Ml) Ud) 3 ml INH RQ6 [facility] Last Admin: 04/29/18 01:53 Dose: 3 ml Dextrose (Dextrose 50% Inj) 0 ml IV STAT PRN; Protocol PRN Reason: Hypoglycemia Protocol Dextrose (Glutose 15) 0 gm PO ONCE PRN; Protocol PRN Reason: Hypoglycemia Protocol Diphenhydramine HCl (Benadryl) 25 mg PO ONCE PRN PRN Reason: Prior to blood transfusion Last Admin: 04/28/18 18:08 Dose: 25 mg Glucagon (Glucagen Diagnostic Kit) 0 mg IM STAT PRN; Protocol PRN Reason: Hypoglycemia Protocol Sodium Chloride (Sodium Chloride 0.45%) 1,000 mls @ 50 mls/hr IV .Q20H [facility] Last Admin: 04/28/18 05:30 Dose: 50 mls/hr Dextrose (Dextrose 5% In Water 1000 Ml) 1,000 mls @ 0 mls/hr IV .Q0M PRN; Protocol PRN Reason: Hypoglycemia Protocol Insulin Human Regular (Novolin R) 0 unit SC ACHS [facility]; Protocol Last Admin: 04/28/18 22:05 Dose: Not Given Losartan Potassium (Cozaar) 100 mg PO DAILY [facility] Pantoprazole Sodium (Protonix Inj) 40 mg IVP DAILY [facility] Tiotropium [place] (Spiriva) 18 mcg INH RQ24 [facility] Last Admin: 04/28/18 08:43 Dose: Not Given - Labs Labs: 04/29/18 07:02 04/29/18 07:02 PT 11.4 SECONDS (9.7-12.2) 04/27/18 15:33 INR 1.0 04/27/18 15:33 APTT 32 SECONDS (21-34) 04/27/18 15:33 - Constitutional Appears: Well, No Acute Distress - Head Exam Head Exam: NORMOCEPHALIC - Cardiovascular Exam Cardiovascular Exam: REGULAR RHYTHM - GI/Abdominal Exam GI & Abdominal Exam: Soft. absent: Tenderness - Extremities Exam Extremities Exam: Normal Inspection - Neurological Exam Neurological Exam: Awake, Oriented x3 - Psychiatric Exam Psychiatric exam: Normal Mood Assessment and Plan (1) Symptomatic anemia Status: Acute - Assessment and Plan (Free Text) Assessment: Severe iron deficiency anemia- suspect GI bleed Rec: Check HP, Keep on PPI. Needs EGD- await Ortho clearance. Advance diet
[2018-04-29] MEDS: (Novolin R) Insulin Human Regular 100 units/ml vial SC SCH ×4 (08:19→21:53)
--- NOTE | 2018-04-29 12:05 | CP.PCM.PN ---
Subjective - Date & Time of Evaluation Date of Evaluation: 04/29/18 Time of Evaluation: 12:25 - Subjective Subjective: Pt sp 3 units PRBC seen by GI this AM Pt is up in bed eating a big lunch states he feels a lot better Objective - Vital Signs/Intake and Output Vital Signs (last 24 hours): Temp Pulse Resp BP Pulse Ox 98.0 F 77 20 153/75 H 97 04/29/18 07:00 04/29/18 07:00 04/29/18 07:00 04/29/18 07:00 04/29/18 07:00 Intake and Output: 04/29/18 04/29/18 06:59 18:59 Intake Total 325 Output Total 500 Balance -175 - Medications Medications: Current Medications Acetaminophen (Tylenol 325mg Tab) 650 mg PO ONCE PRN PRN Reason: Prior to PRBC transfusion Last Admin: 04/28/18 18:08 Dose: 650 mg Albuterol/Ipratropium (Duoneb 3 Mg/0.5 Mg (3 Ml) Ud) 3 ml INH RQ6 [facility] Last Admin: 04/29/18 01:53 Dose: 3 ml Dextrose (Dextrose 50% Inj) 0 ml IV STAT PRN; Protocol PRN Reason: Hypoglycemia Protocol Dextrose (Glutose 15) 0 gm PO ONCE PRN; Protocol PRN Reason: Hypoglycemia Protocol Diphenhydramine HCl (Benadryl) 25 mg PO ONCE PRN PRN Reason: Prior to blood transfusion Last Admin: 04/28/18 18:08 Dose: 25 mg Glucagon (Glucagen Diagnostic Kit) 0 mg IM STAT PRN; Protocol PRN Reason: Hypoglycemia Protocol Sodium Chloride (Sodium Chloride 0.45%) 1,000 mls @ 50 mls/hr IV .Q20H [facility] Last Admin: 04/28/18 05:30 Dose: 50 mls/hr Dextrose (Dextrose 5% In Water 1000 Ml) 1,000 mls @ 0 mls/hr IV .Q0M PRN; Protocol PRN Reason: Hypoglycemia Protocol Insulin Human Regular (Novolin R) 0 unit SC ACHS [facility]; Protocol Last Admin: 04/29/18 08:19 Dose: Not Given Losartan Potassium (Cozaar) 100 mg PO DAILY [facility] Last Admin: 04/29/18 09:31 Dose: 100 mg Pantoprazole Sodium (Protonix Inj) 40 mg IVP DAILY [facility] Last Admin: 04/29/18 09:31 Dose: 40 mg Tiotropium [place] (Spiriva) 18 mcg INH RQ24 [facility] Last Admin: 04/28/18 08:43 Dose: Not Given - Labs Labs: 04/29/18 07:02 04/29/18 07:02 PT 11.4 SECONDS (9.7-12.2) 04/27/18 15:33 INR 1.0 04/27/18 15:33 APTT 32 SECONDS (21-34) 04/27/18 15:33 - Constitutional Appears: Non-toxic - Eye Exam Eye Exam: Normal appearance - ENT Exam ENT Exam: Mucous Membranes Moist - Respiratory Exam Respiratory Exam: Clear to Ausculation Bilateral - GI/Abdominal Exam GI & Abdominal Exam: Soft, Normal Bowel Sounds. absent: Tenderness Assessment and Plan - Assessment and Plan (Free Text) Assessment: Anemia hgb up to 8 after 3 units + guiac awaiting for egd pt will need ortho clearance due to severe cervical disc disease xray of c spine and ortho eval ordered copd; stable bp not ideal may need to adjust meds was taken off b jimy by cardio prior to this admission
[2018-04-29] MEDS: Sodium Chloride 0.45% 1,000 ML IV SCH ×2 (15:00→23:42)
--- NOTE | 2018-04-29 17:49 | RAD ---
Date of service: 04/29/2018 PROCEDURE: Cervical Spine Radiographs. HISTORY: Pain. COMPARISON: Comparison is made to the previous CT of the neck dated 02/25/2018 FINDINGS: BONES: Large osteophyte formation are noted. 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 SOFT TISSUES: Normal. No prevertebral soft tissue swelling. OTHER FINDINGS: None. IMPRESSION: Limited study. Large anterior bridging osteophyte formation are noted.
[2018-04-30] MEDS: Albuterol-Ipratrop 3 mg / 0.5 (3 ml) UD INH SCH ×4 (01:54→19:29)
[2018-04-30 07:43] LABS: BASO % 0.9 % (0.0-2.0); EOS # 0.2 K/uL (0.0-0.7); EOS % 3.1 % (0.0-4.0); HEMOGLOBIN 8.8 g/dL (12.0-18.0); LYMPH # 1.3 K/uL (1.0-4.3); LYMPH % 24.5 % (20.0-40.0); MEAN CELL VOLUME 82.6 fL (80.0-94.0); MEAN CORPUSCULAR HEMOGLOBIN 26.4 pg (27.0-31.0); MEAN PLATELET VOLUME 9.5 fL (7.2-11.7); MONO # 0.5 K/uL (0.0-0.8); MONO % 8.8 % (0.0-10.0); NEUT # 3.2 K/uL (1.8-7.0); NEUT % 62.7 % (50.0-75.0); NRBC % 0.1 % (0.0-2.0); RBC 3.32 Mil/uL (4.40-5.90); RED CELL DISTRIBUTION WIDTH 18.5 % (11.5-14.5); WHITE BLOOD COUNT 5.2 K/uL (4.8-10.8)
[2018-04-30] MEDS: (Novolin R) Insulin Human Regular 100 units/ml vial SC SCH ×4 (08:00→18:29)
[2018-04-30 08:07] LABS: BLOOD UREA NITROGEN 19 mg/dL (9-20); CALCIUM 8.5 mg/dl (8.6-10.4); GFR NON-AFRICAN AMERICAN > 60
[2018-04-30] MEDS: Tiotropium 18 mcg Cap For Inhalation INH SCH (08:22)
--- NOTE | 2018-04-30 11:06 | CP.PCM.PN ---
Subjective - Date & Time of Evaluation Date of Evaluation: 04/30/18 Time of Evaluation: 11:04 - Subjective Subjective: Covering Dr Lambert Tolerating diet BM- without melena/visible blood Hgb stable (-) dyspnea/abd pain Objective - Vital Signs/Intake and Output Vital Signs (last 24 hours): Temp Pulse Resp BP Pulse Ox 98.0 F 98 H 20 166/97 H 97 04/30/18 07:30 04/30/18 07:30 04/30/18 07:30 04/30/18 07:30 04/30/18 07:30 Intake and Output: 04/30/18 04/30/18 06:59 18:59 Intake Total 500 Output Total 600 Balance -100 - Medications Medications: Current Medications Acetaminophen (Tylenol 325mg Tab) 650 mg PO Q6 PRN PRN Reason: Pain, moderate (4-7) Last Admin: 04/29/18 14:19 Dose: 650 mg Albuterol/Ipratropium (Duoneb 3 Mg/0.5 Mg (3 Ml) Ud) 3 ml INH RQ6 [facility] Last Admin: 04/30/18 01:54 Dose: Not Given Dextrose (Dextrose 50% Inj) 0 ml IV STAT PRN; Protocol PRN Reason: Hypoglycemia Protocol Dextrose (Glutose 15) 0 gm PO ONCE PRN; Protocol PRN Reason: Hypoglycemia Protocol Diphenhydramine HCl (Benadryl) 25 mg PO ONCE PRN PRN Reason: Prior to blood transfusion Last Admin: 04/28/18 18:08 Dose: 25 mg Glucagon (Glucagen Diagnostic Kit) 0 mg IM STAT PRN; Protocol PRN Reason: Hypoglycemia Protocol Sodium Chloride (Sodium Chloride 0.45%) 1,000 mls @ 50 mls/hr IV .Q20H [facility] Last Admin: 04/29/18 23:42 Dose: 50 mls/hr Dextrose (Dextrose 5% In Water 1000 Ml) 1,000 mls @ 0 mls/hr IV .Q0M PRN; Protocol PRN Reason: Hypoglycemia Protocol Insulin Human Regular (Novolin R) 0 unit SC ACHS [facility]; Protocol Last Admin: 04/30/18 08:00 Dose: Not Given Losartan Potassium (Cozaar) 100 mg PO DAILY [facility] Last Admin: 04/30/18 09:39 Dose: 100 mg Pantoprazole Sodium (Protonix Inj) [address] [facility] Last Admin: 04/30/18 09:40 Dose: 40 mg Tiotropium [place] (Spiriva) 18 mcg INH RQ24 [facility] Last Admin: 04/29/18 07:43 Dose: Not Given - Labs Labs: 04/30/18 07:38 04/30/18 07:38 PT 11.4 SECONDS (9.7-12.2) 04/27/18 15:33 INR 1.0 04/27/18 15:33 APTT 32 SECONDS (21-34) 04/27/18 15:33 - Constitutional Appears: Well - Respiratory Exam Respiratory Exam: Clear to Ausculation Bilateral - Cardiovascular Exam Cardiovascular Exam: REGULAR RHYTHM - GI/Abdominal Exam GI & Abdominal Exam: Soft. 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
--- NOTE | 2018-04-30 15:01 | CP.PCM.PN ---
Subjective - Date & Time of Evaluation Date of Evaluation: 04/30/18 Time of Evaluation: 15:03 - Subjective Subjective: PT REPORTS feeling better appetite is good no blood in stool awaing for EGD had xray of neck yesterday Objective - Vital Signs/Intake and Output Vital Signs (last 24 hours): Temp Pulse Resp BP Pulse Ox 98.0 F 98 H 20 166/97 H 97 04/30/18 07:30 04/30/18 07:30 04/30/18 07:30 04/30/18 07:30 04/30/18 07:30 Intake and Output: 04/30/18 04/30/18 06:59 18:59 Intake Total 500 640 Output Total 600 200 Balance -100 440 - Medications Medications: Current Medications Acetaminophen (Tylenol 325mg Tab) 650 mg PO Q6 PRN PRN Reason: Pain, moderate (4-7) Last Admin: 04/29/18 14:19 Dose: 650 mg Albuterol/Ipratropium (Duoneb 3 Mg/0.5 Mg (3 Ml) Ud) 3 ml INH RQ6 [facility] Last Admin: 04/30/18 13:22 Dose: Not Given Dextrose (Dextrose 50% Inj) 0 ml IV STAT PRN; Protocol PRN Reason: Hypoglycemia Protocol Dextrose (Glutose 15) 0 gm PO ONCE PRN; Protocol PRN Reason: Hypoglycemia Protocol Diphenhydramine HCl (Benadryl) 25 mg PO ONCE PRN PRN Reason: Prior to blood transfusion Last Admin: 04/28/18 18:08 Dose: 25 mg Glucagon (Glucagen Diagnostic Kit) 0 mg IM STAT PRN; Protocol PRN Reason: Hypoglycemia Protocol Sodium Chloride (Sodium Chloride 0.45%) 1,000 mls @ 50 mls/hr IV .Q20H [facility] Last Admin: 04/29/18 23:42 Dose: 50 mls/hr Dextrose (Dextrose 5% In Water 1000 Ml) 1,000 mls @ 0 mls/hr IV .Q0M PRN; Protocol PRN Reason: Hypoglycemia Protocol Insulin Aspart (Novolog) 10 unit SC TID [facility] Insulin Detemir (Levemir) 25 unit SC DAILY [facility] Insulin Human Regular (Novolin R) 0 unit SC ACHS [facility]; Protocol Last Admin: 04/30/18 12:47 Dose: 8 units Losartan Potassium (Cozaar) 100 mg PO DAILY [facility] Last Admin: 04/30/18 09:39 Dose: 100 mg Pantoprazole Sodium (Protonix Inj) 40 mg IVP DAILY [facility] Last Admin: 04/30/18 09:40 Dose: 40 mg Tiotropium [place] (Spiriva) 18 mcg INH RQ24 [facility] Last Admin: 04/30/18 08:22 Dose: Not Given - Labs Labs: 04/30/18 07:38 04/30/18 07:38 PT 11.4 SECONDS (9.7-12.2) 04/27/18 15:33 INR 1.0 04/27/18 15:33 APTT 32 SECONDS (21-34) 04/27/18 15:33 - Constitutional Appears: Well, Non-toxic - Eye Exam Eye Exam: Normal appearance - ENT Exam ENT Exam: Mucous Membranes Moist - Respiratory Exam Respiratory Exam: Clear to Ausculation Bilateral - GI/Abdominal Exam GI & Abdominal Exam: Soft, Hernia, Normal Bowel Sounds. absent: Tenderness - Extremities Exam Extremities Exam: absent: Joint Swelling Assessment and Plan - Assessment and Plan (Free Text) Assessment: anemia +guiac iron deff low ferritin will need iron will give one infusion pending possible colonoscopy and then give po trial Awaiting ortho input regarding c spine disease and ability for patient to tolerate EGD DM; elevated resume insulin regimen elevated bp off b jimy chlorthalidone added
[2018-04-30] MEDS: Insulin Detemir 100 units/ml Vial (Levemir) SC SCH (18:29)
[2018-04-30] MEDS: (Novolog) Insulin Aspart, Recombinant 100 u/ml 10 ml vial SC SCH (18:30)
[2018-05-01] MEDS: Albuterol-Ipratrop 3 mg / 0.5 (3 ml) UD INH SCH ×4 (01:55→20:03)
[2018-05-01] MEDS: (Novolin R) Insulin Human Regular 100 units/ml vial SC SCH ×4 (08:07→21:15)
[2018-05-01 08:11] LABS: BASO # 0.1 K/uL (0.0-0.2); BASO % 1.3 % (0.0-2.0); EOS # 0.2 K/uL (0.0-0.7); EOS % 2.4 % (0.0-4.0); HEMOGLOBIN 9.9 g/dL (12.0-18.0); LYMPH # 1.8 K/uL (1.0-4.3); LYMPH % 26.8 % (20.0-40.0); MEAN CELL VOLUME 82.4 fL (80.0-94.0); MEAN CORPUSCULAR HEMOGLOBIN 25.9 pg (27.0-31.0); MEAN CORPUSCULAR HGB CONC 31.5 g/dL (33.0-37.0); MEAN PLATELET VOLUME 9.3 fL (7.2-11.7); MONO # 0.5 K/uL (0.0-0.8); MONO % 7.1 % (0.0-10.0); NEUT # 4.2 K/uL (1.8-7.0); NEUT % 62.4 % (50.0-75.0); RBC 3.82 Mil/uL (4.40-5.90); RED CELL DISTRIBUTION WIDTH 18.6 % (11.5-14.5); WHITE BLOOD COUNT 6.8 K/uL (4.8-10.8)
[2018-05-01 08:24] LABS: BLOOD UREA NITROGEN 19 mg/dL (9-20); CALCIUM 9.4 mg/dl (8.6-10.4); GFR NON-AFRICAN AMERICAN > 60
--- NOTE | 2018-05-01 09:10 | CP.PCM.PN ---
Subjective - Date & Time of Evaluation Date of Evaluation: 05/01/18 Time of Evaluation: 09:06 - Subjective Subjective: Patient denies having nausea, vomiting, abdominal pain. He describes difficulty swallowing, and the food seems to be diverted to one side. He has not had a bowel movement so far today. Objective - Vital Signs/Intake and Output Vital Signs (last 24 hours): Temp Pulse Resp BP Pulse Ox 98.0 F 68 20 170/75 H 97 04/30/18 23:34 04/30/18 23:34 04/30/18 23:34 04/30/18 23:34 04/30/18 23:34 Intake and Output: 05/01/18 05/01/18 06:59 18:59 Output Total 600 Balance -600 - Medications Medications: Current Medications Acetaminophen (Tylenol 325mg Tab) 650 mg PO Q6 PRN PRN Reason: Pain, moderate (4-7) Last Admin: 05/01/18 08:07 Dose: 650 mg Albuterol/Ipratropium (Duoneb 3 Mg/0.5 Mg (3 Ml) Ud) 3 ml INH RQ6 [facility] Last Admin: 05/01/18 01:55 Dose: Not Given Chlorthalidone (Hygroton) 25 mg PO DAILY [facility] Dextrose (Dextrose 50% Inj) 0 ml IV STAT PRN; Protocol PRN Reason: Hypoglycemia Protocol Dextrose (Glutose 15) 0 gm PO ONCE PRN; Protocol PRN Reason: Hypoglycemia Protocol Diphenhydramine HCl (Benadryl) 25 mg PO ONCE PRN PRN Reason: Prior to blood transfusion Last Admin: 04/28/18 18:08 Dose: 25 mg Ferric Sodium Gluconate Complex (Ferrlecit) 125 mg IVPB DAILY [facility] Stop: 05/01/18 10:01 Glucagon (Glucagen Diagnostic Kit) 0 mg IM STAT PRN; Protocol PRN Reason: Hypoglycemia Protocol Insulin Aspart (Novolog) 10 unit SC TID [facility] Last Admin: 04/30/18 18:30 Dose: 10 unit Insulin Detemir (Levemir) 25 unit SC DAILY [facility] Last Admin: 04/30/18 18:29 Dose: 25 unit Insulin Human Regular (Novolin R) 0 unit SC ACHS [facility]; Protocol Last Admin: 05/01/18 08:07 Dose: 2 units Losartan Potassium (Cozaar) 100 mg PO DAILY [facility] Last Admin: 05/01/18 08:07 Dose: 100 mg Pantoprazole Sodium (Protonix Inj) 40 mg IVP DAILY [facility] Last Admin: 04/30/18 09:40 Dose: 40 mg Tiotropium [place] (Spiriva) 18 mcg INH RQ24 [facility] Last Admin: 04/30/18 08:22 Dose: Not Given - Labs Labs: 05/01/18 08:03 05/01/18 08:03 PT 11.4 SECONDS (9.7-12.2) 04/27/18 15:33 INR 1.0 04/27/18 15:33 APTT 32 SECONDS (21-34) 04/27/18 15:33 - Constitutional Appears: No Acute Distress - Head Exam Head Exam: ATRAUMATIC, NORMOCEPHALIC - Eye Exam Eye Exam: EOMI, PERRL - Neck Exam Neck Exam: absent: Lymphadenopathy, Thyromegaly - Cardiovascular Exam Cardiovascular Exam: REGULAR RHYTHM, +S1, +S2. absent: Gallop, Rubs, Murmur - GI/Abdominal Exam GI & Abdominal Exam: Soft, Normal Bowel Sounds. absent: Tenderness, Mass, Organomegaly - Rectal Exam Rectal Exam: Deferred - Extremities Exam Extremities Exam: absent: Calf Tenderness, Pedal Edema Assessment and Plan (1) Iron deficiency anemia Assessment & Plan: Anemia is due to iron deficiency, with indices as follows: iron 20, TIBC 477, % saturation 4, ferritin 5.3. The B12 was 287 (normal 239-931). Methylmalonic acid and folic acid are pending. In addition, 3/3 stools were positive for occult blood. After transfusion, the HGB came up to to 9.9. Patient should have GI workup to include EGD and colonoscopy. Since large osteophytes and severe cervical spinal stenosis has been documented previously, he should be cleared by the spine surgeon before upper endoscopy. Status: Acute
[2018-05-01] MEDS: Insulin Detemir 100 units/ml Vial (Levemir) SC SCH (09:23)
[2018-05-01] MEDS: (Novolog) Insulin Aspart, Recombinant 100 u/ml 10 ml vial SC SCH ×3 (09:23→17:33)
[2018-05-01] MEDS ORDERED: Ferric Sodium Gluconat Complex 62.5 mg/5 ml Vial IVPB SCH (10:00)
[2018-05-01 11:27] LABS: FOLATE 11.8 ng/mL
--- NOTE | 2018-05-01 19:17 | CP.PCM.PN ---
Subjective - Date & Time of Evaluation Date of Evaluation: 05/01/18 Time of Evaluation: 19:30 - Subjective Subjective: Pt report he had a good day no pain currently eating denies blood in his stools Objective - Vital Signs/Intake and Output Vital Signs (last 24 hours): Temp Pulse Resp BP Pulse Ox 98.0 F 74 20 109/67 99 05/01/18 15:00 05/01/18 15:00 05/01/18 15:00 05/01/18 15:00 05/01/18 15:00 - Medications Medications: Current Medications Acetaminophen (Tylenol 325mg Tab) 650 mg PO Q6 PRN PRN Reason: Pain, moderate (4-7) Last Admin: 05/01/18 08:07 Dose: 650 mg Albuterol/Ipratropium (Duoneb 3 Mg/0.5 Mg (3 Ml) Ud) 3 ml INH RQ6 [facility] Last Admin: 05/01/18 13:51 Dose: 3 ml Dextrose (Dextrose 50% Inj) 0 ml IV STAT PRN; Protocol PRN Reason: Hypoglycemia Protocol Dextrose (Glutose 15) 0 gm PO ONCE PRN; Protocol PRN Reason: Hypoglycemia Protocol Diphenhydramine HCl (Benadryl) 25 mg PO ONCE PRN PRN Reason: Prior to blood transfusion Last Admin: 04/28/18 18:08 Dose: 25 mg Glucagon (Glucagen Diagnostic Kit) 0 mg IM STAT PRN; Protocol PRN Reason: Hypoglycemia Protocol Insulin Aspart (Novolog) 10 unit SC TID [facility] Last Admin: 05/01/18 17:33 Dose: 10 unit Insulin Detemir (Levemir) 25 unit SC DAILY [facility] Last Admin: 05/01/18 09:23 Dose: 25 unit Insulin Human Regular (Novolin R) 0 unit SC ACHS [facility]; Protocol Last Admin: 05/01/18 16:53 Dose: 2 units Losartan Potassium (Cozaar) 100 mg PO DAILY [facility] Last Admin: 05/01/18 10:41 Dose: Not Given Pantoprazole Sodium (Protonix Inj) 40 mg IVP DAILY [facility] Last Admin: 05/01/18 09:24 Dose: 40 mg Tiotropium [place] (Spiriva) 18 mcg INH RQ24 [facility] Last Admin: 04/30/18 08:22 Dose: Not Given - Labs Labs: 05/01/18 08:03 05/01/18 08:03 PT 11.4 SECONDS (9.7-12.2) 04/27/18 15:33 INR 1.0 04/27/18 15:33 APTT 32 SECONDS (21-34) 04/27/18 15:33 - Constitutional Appears: Non-toxic - Eye Exam Eye Exam: Normal appearance - ENT Exam ENT Exam: Mucous Membranes Moist - Respiratory Exam Respiratory Exam: Clear to Ausculation Bilateral - Cardiovascular Exam Cardiovascular Exam: REGULAR RHYTHM, RRR, +S1, +S2. absent: JVD - GI/Abdominal Exam GI & Abdominal Exam: Soft, Normal Bowel Sounds. absent: Tenderness Assessment and Plan - Assessment and Plan (Free Text) Assessment: Iron def anemia sp 3 uintis prn one iv infussion of iron c spine disease cosulted ortho but they deffered eval to neurosurgeon consult ordered needs spine surgeon eval before EGD due to severe c spine diease bp noted low bp today dc chlorathlidone sugars ; sugars better
[2018-05-02] MEDS: Albuterol-Ipratrop 3 mg / 0.5 (3 ml) UD INH SCH ×4 (01:42→20:48)
[2018-05-02] MEDS: (Novolin R) Insulin Human Regular 100 units/ml vial SC SCH ×4 (08:00→21:48)
[2018-05-02] MEDS: Tiotropium 18 mcg Cap For Inhalation INH SCH (09:12)
[2018-05-02] MEDS: Insulin Detemir 100 units/ml Vial (Levemir) SC SCH (10:19)
[2018-05-02] MEDS: (Novolog) Insulin Aspart, Recombinant 100 u/ml 10 ml vial SC SCH ×3 (10:20→17:20)
--- NOTE | 2018-05-02 10:59 | CP.PCM.PN ---
Subjective - Date & Time of Evaluation Date of Evaluation: 05/02/18 Time of Evaluation: 10:55 - Subjective Subjective: Patient denies having nausea, vomiting, abdominal pain. Stools have been yellow in color. Objective - Vital Signs/Intake and Output Vital Signs (last 24 hours): Temp Pulse Resp BP Pulse Ox 97.9 F 67 20 138/70 96 05/02/18 07:25 05/02/18 07:25 05/02/18 07:25 05/02/18 07:25 05/02/18 07:25 Intake and Output: 05/02/18 05/02/18 06:59 18:59 Intake Total 1270 Output Total 700 Balance 570 - Medications Medications: Current Medications Acetaminophen (Tylenol 325mg Tab) 650 mg PO Q6 PRN PRN Reason: Pain, moderate (4-7) Last Admin: 05/01/18 08:07 Dose: 650 mg Albuterol/Ipratropium (Duoneb 3 Mg/0.5 Mg (3 Ml) Ud) 3 ml INH RQ6 [facility] Last Admin: 05/02/18 09:12 Dose: 3 ml Dextrose (Dextrose 50% Inj) 0 ml IV STAT PRN; Protocol PRN Reason: Hypoglycemia Protocol Dextrose (Glutose 15) 0 gm PO ONCE PRN; Protocol PRN Reason: Hypoglycemia Protocol Diphenhydramine HCl (Benadryl) 25 mg PO ONCE PRN PRN Reason: Prior to blood transfusion Last Admin: 04/28/18 18:08 Dose: 25 mg Glucagon (Glucagen Diagnostic Kit) 0 mg IM STAT PRN; Protocol PRN Reason: Hypoglycemia Protocol Insulin Aspart (Novolog) 10 unit SC TID [facility] Last Admin: 05/02/18 10:20 Dose: 10 unit Insulin Detemir (Levemir) 25 unit SC DAILY [facility] Last Admin: 05/02/18 10:19 Dose: 25 unit Insulin Human Regular (Novolin R) 0 unit SC ACHS [facility]; Protocol Last Admin: 05/02/18 08:00 Dose: 2 units Losartan Potassium (Cozaar) 100 mg PO DAILY [facility] Last Admin: 05/02/18 09:34 Dose: 100 mg Pantoprazole Sodium (Protonix Inj) 40 mg IVP DAILY [facility] Last Admin: 05/02/18 09:34 Dose: 40 mg Tiotropium [place] (Spiriva) 18 mcg INH RQ24 [facility] Last Admin: 05/02/18 09:12 Dose: 18 mcg - Labs Labs: 05/01/18 08:03 05/01/18 08:03 PT 11.4 SECONDS (9.7-12.2) 04/27/18 15:33 INR 1.0 04/27/18 15:33 APTT 32 SECONDS (21-34) 04/27/18 15:33 - Constitutional Appears: No Acute Distress - Head Exam Head Exam: ATRAUMATIC, NORMOCEPHALIC - Eye Exam Eye Exam: EOMI - Neck Exam Neck Exam: absent: Lymphadenopathy, Thyromegaly - Respiratory Exam Respiratory Exam: NORMAL BREATHING PATTERN. absent: Rales, Rhonchi - Cardiovascular Exam Cardiovascular Exam: REGULAR RHYTHM, +S1, +S2. absent: Gallop, Rubs, Murmur - GI/Abdominal Exam GI & Abdominal Exam: Soft, Normal Bowel Sounds. absent: Tenderness, Mass, Organomegaly - Rectal Exam Rectal Exam: Deferred - Extremities Exam Extremities Exam: absent: Calf Tenderness, Pedal Edema Assessment and Plan (1) Iron deficiency anemia Assessment & Plan: Patient has iron deficiency anemia and positive occult blood in the stool. He should have GI workup including EGD and colonoscopy. The risk of perforation is increased with anterior osteophytes, and measures may need to be taken to immobilize the C-spine owing to spinal stenosis. Will order MRI and esophagram, and await Neurosurgery evaluation. Status: Acute
[2018-05-02 14:47] LABS: METHYLMALONIC ACID,SERUM <50 nmol/L (87-318)
--- NOTE | 2018-05-02 18:57 | CP.PCM.PN ---
Subjective - Date & Time of Evaluation Date of Evaluation: 05/02/18 Time of Evaluation: 18:57 - Subjective Subjective: PT reports feeling ok no new issues no sob no chest pain no melena or hematochezia Objective - Vital Signs/Intake and Output Vital Signs (last 24 hours): Temp Pulse Resp BP Pulse Ox 98 F 78 20 133/59 L 97 05/02/18 16:30 05/02/18 16:30 05/02/18 16:30 05/02/18 16:30 05/02/18 16:30 Intake and Output: 05/02/18 05/02/18 06:59 18:59 Intake Total 1270 Output Total 700 Balance 570 - Medications Medications: Current Medications Acetaminophen (Tylenol 325mg Tab) 650 mg PO Q6 PRN PRN Reason: Pain, moderate (4-7) Last Admin: 05/01/18 08:07 Dose: 650 mg Albuterol/Ipratropium (Duoneb 3 Mg/0.5 Mg (3 Ml) Ud) 3 ml INH RQ6 [facility] Last Admin: 05/02/18 14:09 Dose: 3 ml Dextrose (Dextrose 50% Inj) 0 ml IV STAT PRN; Protocol PRN Reason: Hypoglycemia Protocol Dextrose (Glutose 15) 0 gm PO ONCE PRN; Protocol PRN Reason: Hypoglycemia Protocol Diphenhydramine HCl (Benadryl) 25 mg PO ONCE PRN PRN Reason: Prior to blood transfusion Last Admin: 04/28/18 18:08 Dose: 25 mg Glucagon (Glucagen Diagnostic Kit) 0 mg IM STAT PRN; Protocol PRN Reason: Hypoglycemia Protocol Insulin Aspart (Novolog) 10 unit SC TID [facility] Last Admin: 05/02/18 17:20 Dose: 10 unit Insulin Detemir (Levemir) 25 unit SC DAILY [facility] Last Admin: 05/02/18 10:19 Dose: 25 unit Insulin Human Regular (Novolin R) 0 unit SC ACHS [facility]; Protocol Last Admin: 05/02/18 17:20 Dose: 4 units Losartan Potassium (Cozaar) 100 mg PO DAILY [facility] Last Admin: 05/02/18 09:34 Dose: 100 mg Pantoprazole Sodium (Protonix Inj) 40 mg IVP DAILY [facility] Last Admin: 05/02/18 09:34 Dose: 40 mg Tiotropium [place] (Spiriva) 18 mcg INH RQ24 [facility] Last Admin: 05/02/18 09:12 Dose: 18 mcg - Labs Labs: 05/01/18 08:03 05/01/18 08:03 PT 11.4 SECONDS (9.7-12.2) 04/27/18 15:33 INR 1.0 04/27/18 15:33 APTT 32 SECONDS (21-34) 04/27/18 15:33 - Constitutional Appears: Non-toxic - Eye Exam Eye Exam: Normal appearance - ENT Exam ENT Exam: Mucous Membranes Moist - Respiratory Exam Respiratory Exam: Clear to Ausculation Bilateral - Cardiovascular Exam Cardiovascular Exam: REGULAR RHYTHM, RRR, +S1, +S2. absent: JVD - GI/Abdominal Exam GI & Abdominal Exam: Soft, Normal Bowel Sounds Assessment and Plan - Assessment and Plan (Free Text) Assessment: anemia severe c spine disease with osteophyte DM HTN discussed Gi concernes with pt and daughter awaiting guest experience specialist eval MRI c spine tomorrow if not able to get inpatient eval , will need to do it oupt will discuss with dr. Lambert cont insulin cont meds bp better cbc tomorrow
[2018-05-02 19:53] LABS: BASO % 0.5 % (0.0-2.0); EOS # 0.2 K/uL (0.0-0.7); EOS % 2.4 % (0.0-4.0); HEMOGLOBIN 9.3 g/dL (12.0-18.0); LYMPH # 0.9 K/uL (1.0-4.3); LYMPH % 13.1 % (20.0-40.0); MEAN CELL VOLUME 81.5 fL (80.0-94.0); MEAN CORPUSCULAR HEMOGLOBIN 25.8 pg (27.0-31.0); MEAN CORPUSCULAR HGB CONC 31.6 g/dL (33.0-37.0); MEAN PLATELET VOLUME 9.6 fL (7.2-11.7); MONO # 0.6 K/uL (0.0-0.8); MONO % 8.2 % (0.0-10.0); NEUT # 5.3 K/uL (1.8-7.0); NEUT % 75.8 % (50.0-75.0); NRBC % 0.2 % (0.0-2.0); RBC 3.62 Mil/uL (4.40-5.90); RED CELL DISTRIBUTION WIDTH 19.5 % (11.5-14.5)
[2018-05-02 20:10] LABS: INR 1.1; PROTHROMBIN TIME 12.3 SECONDS (9.7-12.2)
[2018-05-02 20:17] LABS: ALB/GLOB RATIO 1.5 (1.0-2.1); ALBUMIN 4.4 g/dL (3.5-5.0); ALT/SGPT 26 U/L (21-72); AST/SGOT 20 U/L (17-59); BLOOD UREA NITROGEN 22 mg/dL (9-20); CALCIUM 9.4 mg/dl (8.6-10.4); GFR NON-AFRICAN AMERICAN 50
[2018-05-03] MEDS: Albuterol-Ipratrop 3 mg / 0.5 (3 ml) UD INH SCH ×4 (02:13→19:55)
[2018-05-03 08:01] LABS: HEMOGLOBIN 8.9 g/dL (12.0-18.0); MEAN CELL VOLUME 82.4 fL (80.0-94.0); MEAN CORPUSCULAR HEMOGLOBIN 26.8 pg (27.0-31.0); MEAN CORPUSCULAR HGB CONC 32.5 g/dL (33.0-37.0); RBC 3.34 Mil/uL (4.40-5.90); RED CELL DISTRIBUTION WIDTH 19.8 % (11.5-14.5); WHITE BLOOD COUNT 7.5 K/uL (4.8-10.8)
[2018-05-03] MEDS: (Novolin R) Insulin Human Regular 100 units/ml vial SC SCH ×5 (08:27→22:05)
--- NOTE | 2018-05-03 09:40 | CP.PCM.PN ---
Subjective - Date & Time of Evaluation Date of Evaluation: 05/03/18 Time of Evaluation: 09:39 - Subjective Subjective: PT reports feeling well no abd pain had a good night sleep awating for MRI Objective - Vital Signs/Intake and Output Vital Signs (last 24 hours): Temp Pulse Resp BP Pulse Ox 97.9 F 106 H 20 149/77 96 05/03/18 07:30 05/03/18 07:30 05/03/18 07:30 05/03/18 07:30 05/03/18 07:30 Intake and Output: 05/03/18 05/03/18 06:59 18:59 Intake Total 400 Output Total 400 Balance 0 - Medications Medications: Current Medications Acetaminophen (Tylenol 325mg Tab) 650 mg PO Q6 PRN PRN Reason: Pain, moderate (4-7) Last Admin: 05/01/18 08:07 Dose: 650 mg Albuterol/Ipratropium (Duoneb 3 Mg/0.5 Mg (3 Ml) Ud) 3 ml INH RQ6 [facility] Last Admin: 05/03/18 08:35 Dose: 3 ml Dextrose (Dextrose 50% Inj) 0 ml IV STAT PRN; Protocol PRN Reason: Hypoglycemia Protocol Dextrose (Glutose 15) 0 gm PO ONCE PRN; Protocol PRN Reason: Hypoglycemia Protocol Diphenhydramine HCl (Benadryl) 25 mg PO ONCE PRN PRN Reason: Prior to blood transfusion Last Admin: 04/28/18 18:08 Dose: 25 mg Glucagon (Glucagen Diagnostic Kit) 0 mg IM STAT PRN; Protocol PRN Reason: Hypoglycemia Protocol Insulin Aspart (Novolog) 10 unit SC TID [facility] Last Admin: 05/02/18 17:20 Dose: 10 unit Insulin Detemir (Levemir) 25 unit SC DAILY [facility] Last Admin: 05/02/18 10:19 Dose: 25 unit Insulin Human Regular (Novolin R) 0 unit SC ACHS [facility]; Protocol Last Admin: 05/03/18 08:27 Dose: Not Given Losartan Potassium (Cozaar) 100 mg PO DAILY [facility] Last Admin: 05/02/18 09:34 Dose: 100 mg Metformin HCl (Glucophage) 500 mg PO BID [facility] Pantoprazole Sodium (Protonix Inj) 40 mg IVP DAILY [facility] Last Admin: 05/02/18 09:34 Dose: 40 mg Tiotropium [place] (Spiriva) 18 mcg INH RQ24 [facility] Last Admin: 05/02/18 09:12 Dose: 18 mcg - Labs Labs: 05/03/18 07:49 05/02/18 19:45 PT 12.3 SECONDS (9.7-12.2) H 05/02/18 19:45 INR 1.1 05/02/18 19:45 APTT 32 SECONDS (21-34) 04/27/18 15:33 - Constitutional Appears: Well, Non-toxic - Eye Exam Eye Exam: Normal appearance - ENT Exam ENT Exam: Mucous Membranes Moist - Respiratory Exam Respiratory Exam: Clear to Ausculation Bilateral - Cardiovascular Exam Cardiovascular Exam: RRR, +S1, +S2. absent: JVD - GI/Abdominal Exam GI & Abdominal Exam: Soft, Normal Bowel Sounds Assessment and Plan - Assessment and Plan (Free Text) Assessment: Anemia iron def sp iron infusion and 3 units prbc noted small decrease in hg will given another iron infussion spoke to Dr. Lambert regarding c spine issues awaiting for visual merchandising specialist if not possible inpatient eval will have to do outpt dm elevated sugars added metformin
[2018-05-03] MEDS ORDERED: Ferric Sodium Gluconat Complex 62.5 mg/5 ml Vial IVPB SCH (10:00)
[2018-05-03] MEDS: Insulin Detemir 100 units/ml Vial (Levemir) SC SCH (10:00)
[2018-05-03] MEDS: (Novolog) Insulin Aspart, Recombinant 100 u/ml 10 ml vial SC SCH ×3 (10:17→17:30)
[2018-05-03] MEDS ORDERED: Barium Sulfate for Susp 96% w/w 176g Bottle PR ONE (10:45)
[2018-05-03] MEDS ORDERED: Barium Sulfate for Susp 98% w/w 340g Bottle ONE (10:45)
--- NOTE | 2018-05-03 11:40 | RAD ---
Date of service: 05/03/2018 HISTORY: Dysphagia. COMPARISON: None. TECHNIQUE: Double Contrast esophagram was performed. FINDINGS: Patient tolerated procedure well. ESOPHAGUS: Esophageal mucosa appeared preserved. No evidence of stricture or mass lesion. HIATAL HERNIA: None demonstrated. GASTROESOPHAGEAL REFLUX: Not demonstrated. OTHER FINDINGS: There was aspiration of small quantity of barium in standing position. The total fluoroscopic time was 2.1 minutes. IMPRESSION: 1. Normal motility and appearance of the cervical esophagus. 2. No evidence for stricture or mass. 3. No evidence of hiatal hernia or gastroesophageal reflux on water siphon provocation test. 4. Aspiration of small quantity of barium on standing position.
[2018-05-03] MEDS: Tiotropium 18 mcg Cap For Inhalation INH SCH (13:34)
[2018-05-03] MEDS ORDERED: Gadodiamide 287 mg/ml 20 ml IV ONE (14:20)
--- NOTE | 2018-05-03 15:17 | MRI ---
Date of service: 05/03/2018 PROCEDURE: MR CERVICAL SPINE WITH AND WITHOUT CONTRAST HISTORY: spinal stenosis COMPARISON: Plain radiographs from 04/29/2018. TECHNIQUE: Multiecho multiplanar sequences were performed through the cervical spine with and without the use of intravenous contrast. 18 mL Omniscan was injected intravenously. FINDINGS: There is normal alignment of the cervical vertebral bodies. There is normal cervical lordosis. Vertebral height is normal. There are T1 and T2 hyperintensity degenerative endplate marrow changes at C5-6 worse on the left. Otherwise, bone marrow signal is within normal limits. 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 There is multilevel indentation of the ventral thecal sac and multilevel spinal canal stenosis. The cervical cord is normal in caliber and has normal intrinsic signal. There is multilevel degenerative disc disease with loss of T2 signal at C2-3, C3-4 and C4-5. There is abnormal T2 hyperintense signal in the disc at C5-6 with mild reduced disc height. There is also mild enhancement in the C5-6 disc on post-contrast images. Evaluation of individual disc levels demonstrate: C2-3: Broad-based disc osteophyte complex in conjunction with mild ligamentum flavum infolding result in mild spinal canal stenosis. Moderate right and severe left facet arthropathy contribute to severe right and moderate left neural foraminal narrowing with probable impingement of the exiting right C3 nerve root. C3-4: Broad-based disc osteophyte complex in conjunction with mild ligamentum flavum infolding result in mild spinal canal stenosis. Moderate right and severe left facet arthropathy contribute to severe right and moderate to severe left neural foraminal narrowing with impingement of the exiting right C4 nerve root. C4-5: Broad-based disc osteophyte complex indents the ventral thecal sac with mild spinal canal stenosis. Moderate bilateral facet arthropathy contribute to severe right and moderate to severe left neural foraminal narrowing with impingement of the exiting right C5 nerve root. C5-C6: Left paracentral disc extrusion indents the ventral cord with moderate to severe spinal canal stenosis. Moderate right and mild left facet arthropathy contribute to severe right and moderate left neural foraminal narrowing with probable impingement of the exiting right C6 nerve root. No intrinsic cord signal abnormality. C6-C7: Broad-based disc osteophyte complex and superimposed right foraminal disc protrusion without central spinal canal stenosis. Mild bilateral facet arthropathy contribute to mild right neural foraminal narrowing. C7-T1: No disc herniation, spinal canal stenosis or neural foraminal narrowing. OTHER FINDINGS: Paraspinous soft tissues are normal. IMPRESSION: 1. Multilevel degenerative disc disease, worse at C5-6 with a broad-based left paracentral disc extrusion which indents the ventral cord with moderate to severe spinal canal stenosis. No intrinsic cord signal abnormality. Moderate right and mild left facet arthropathy contribute to severe right and moderate left neural foraminal narrowing with probable impingement of the exiting right C6 nerve root. 2. Multilevel disc osteophyte complexes with multilevel severe right neural foraminal narrowing and probable impingement of the exiting right C3, C4 and C6 nerve roots. 3. Presumable advanced degenerative endplate marrow changes at C5-6, worse on the left. Abnormal disc signal at C5-6 could be related to degenerative/inflammatory changes however early discitis cannot be entirely excluded. Clinical follow-up is advised and if clinically indicated short-term follow-up MRI without and with intravenous contrast may be performed to assess stability/resolution of these changes.
[2018-05-04] MEDS: Albuterol-Ipratrop 3 mg / 0.5 (3 ml) UD INH SCH ×4 (01:15→19:23)
[2018-05-04 07:04] LABS: HEMOGLOBIN 8.7 g/dL (12.0-18.0); MEAN CELL VOLUME 83.1 fL (80.0-94.0); MEAN CORPUSCULAR HGB CONC 31.2 g/dL (33.0-37.0); MEAN PLATELET VOLUME 9.6 fL (7.2-11.7); RBC 3.35 Mil/uL (4.40-5.90); WHITE BLOOD COUNT 7.2 K/uL (4.8-10.8)
[2018-05-04] MEDS: (Novolin R) Insulin Human Regular 100 units/ml vial SC SCH ×4 (08:05→22:01)
[2018-05-04] MEDS: Tiotropium 18 mcg Cap For Inhalation INH SCH (09:03)
--- NOTE | 2018-05-04 09:31 | CP.PCM.PN ---
Subjective - Date & Time of Evaluation Date of Evaluation: 05/04/18 Time of Evaluation: 09:29 - Subjective Subjective: pt needs EGD has multilevel cervical stenosis recommend that prior to study have GI extend his neck carefully and slowly and refrain from agressive neck motion There is a small but elevated risk of neurological injury with neck hypere xtension Objective - Vital Signs/Intake and Output Vital Signs (last 24 hours): Temp Pulse Resp BP Pulse Ox 98.0 F 86 20 152/71 H 97 05/04/18 07:25 05/04/18 07:25 05/04/18 07:25 05/04/18 07:25 05/04/18 07:25 - Medications Medications: Current Medications Acetaminophen (Tylenol 325mg Tab) 650 mg PO Q6 PRN PRN Reason: Pain, moderate (4-7) Last Admin: 05/01/18 08:07 Dose: 650 mg Albuterol/Ipratropium (Duoneb 3 Mg/0.5 Mg (3 Ml) Ud) 3 ml INH RQ6 [facility] Last Admin: 05/04/18 07:45 Dose: 3 ml Dextrose (Dextrose 50% Inj) 0 ml IV STAT PRN; Protocol PRN Reason: Hypoglycemia Protocol Dextrose (Glutose 15) 0 gm PO ONCE PRN; Protocol PRN Reason: Hypoglycemia Protocol Diphenhydramine HCl (Benadryl) 25 mg PO ONCE PRN PRN Reason: Prior to blood transfusion Last Admin: 04/28/18 18:08 Dose: 25 mg Ferric Sodium Gluconate Complex (Ferrlecit) 125 mg IVPB DAILY [facility] Stop: 05/04/18 10:01 Glucagon (Glucagen Diagnostic Kit) 0 mg IM STAT PRN; Protocol PRN Reason: Hypoglycemia Protocol Insulin Aspart (Novolog) 10 unit SC TID [facility] Last Admin: 05/03/18 17:30 Dose: 10 unit Insulin Detemir (Levemir) 25 unit SC DAILY [facility] Last Admin: 05/03/18 10:00 Dose: Not Given Insulin Human Regular (Novolin R) 0 unit SC ACHS [facility]; Protocol Last Admin: 05/04/18 08:05 Dose: 4 units Losartan Potassium (Cozaar) 100 mg PO DAILY [facility] Last Admin: 05/03/18 10:32 Dose: 100 mg Metformin HCl (Glucophage) 500 mg PO BIDCC [facility] Last Admin: 05/04/18 08:04 Dose: 500 mg Pantoprazole Sodium (Protonix Inj) 40 mg IVP DAILY [facility] Last Admin: 05/03/18 10:32 Dose: 40 mg Tiotropium [place] (Spiriva) 18 mcg INH RQ24 [facility] Last Admin: 05/04/18 09:03 Dose: 18 mcg - Labs Labs: 05/04/18 06:56 05/02/18 19:45 PT 12.3 SECONDS (9.7-12.2) H 05/02/18 19:45 INR 1.1 05/02/18 19:45 APTT 32 SECONDS (21-34) 04/27/18 15:33
[2018-05-04] MEDS: Insulin Detemir 100 units/ml Vial (Levemir) SC SCH (09:38)
[2018-05-04] MEDS ORDERED: Ferric Sodium Gluconat Complex 62.5 mg/5 ml Vial IVPB SCH (10:00)
[2018-05-04] MEDS: (Novolog) Insulin Aspart, Recombinant 100 u/ml 10 ml vial SC SCH ×2 (11:48→17:30)
--- NOTE | 2018-05-04 14:58 | CP.PCM.PN ---
Subjective - Date & Time of Evaluation Date of Evaluation: 05/04/18 Time of Evaluation: 14:55 - Subjective Subjective: Patient denies having nausea, vomiting, abdominal pain. Dr. Winn saw the patient and advised against excessive neck motion. Objective - Vital Signs/Intake and Output Vital Signs (last 24 hours): Temp Pulse Resp BP Pulse Ox 98.0 F 86 20 152/71 H 97 05/04/18 07:25 05/04/18 07:25 05/04/18 07:25 05/04/18 07:25 05/04/18 07:25 - Medications Medications: Current Medications Acetaminophen (Tylenol 325mg Tab) 650 mg PO Q6 PRN PRN Reason: Pain, moderate (4-7) Last Admin: 05/01/18 08:07 Dose: 650 mg Albuterol/Ipratropium (Duoneb 3 Mg/0.5 Mg (3 Ml) Ud) 3 ml INH RQ6 [facility] Last Admin: 05/04/18 13:36 Dose: 3 ml Dextrose (Dextrose 50% Inj) 0 ml IV STAT PRN; Protocol PRN Reason: Hypoglycemia Protocol Dextrose (Glutose 15) 0 gm PO ONCE PRN; Protocol PRN Reason: Hypoglycemia Protocol Diphenhydramine HCl (Benadryl) 25 mg PO ONCE PRN PRN Reason: Prior to blood transfusion Last Admin: 04/28/18 18:08 Dose: 25 mg Glucagon (Glucagen Diagnostic Kit) 0 mg IM STAT PRN; Protocol PRN Reason: Hypoglycemia Protocol Insulin Aspart (Novolog) 10 unit SC AC [facility] Last Admin: 05/04/18 11:48 Dose: 10 u Insulin Detemir (Levemir) 25 unit SC DAILY [facility] Last Admin: 05/04/18 09:38 Dose: 25 unit Insulin Human Regular (Novolin R) 0 unit SC ACHS [facility]; Protocol Last Admin: 05/04/18 11:49 Dose: 6 units Losartan Potassium (Cozaar) 100 mg PO DAILY [facility] Last Admin: 05/04/18 09:38 Dose: 100 mg Metformin HCl (Glucophage) 500 mg PO BIDCC [facility] Last Admin: 05/04/18 08:04 Dose: 500 mg Pantoprazole Sodium (Protonix Inj) 40 mg IVP DAILY [facility] Last Admin: 05/04/18 09:37 Dose: 40 mg Tiotropium [place] (Spiriva) 18 mcg INH RQ24 [facility] Last Admin: 05/04/18 09:03 Dose: 18 mcg - Labs Labs: 05/04/18 06:56 05/02/18 19:45 PT 12.3 SECONDS (9.7-12.2) H 05/02/18 19:45 INR 1.1 05/02/18 19:45 APTT 32 SECONDS (21-34) 04/27/18 15:33 - Constitutional Appears: No Acute Distress - Head Exam Head Exam: ATRAUMATIC, NORMOCEPHALIC - Eye Exam Eye Exam: EOMI, PERRL - Neck Exam Neck Exam: absent: Lymphadenopathy, Thyromegaly - Respiratory Exam Respiratory Exam: NORMAL BREATHING PATTERN. absent: Rales, Rhonchi, Wheezes - Cardiovascular Exam Cardiovascular Exam: REGULAR RHYTHM, +S1, +S2. absent: Gallop, Rubs, Murmur - GI/Abdominal Exam GI & Abdominal Exam: Soft, Normal Bowel Sounds. absent: Tenderness, Mass, Organomegaly - Rectal Exam Rectal Exam: Deferred - Extremities Exam Extremities Exam: absent: Calf Tenderness, Pedal Edema Assessment and Plan (1) Iron deficiency anemia Assessment & Plan: HGB has declined slightly to 8.9 and then 8.7. Will perform EGD tomorrow, taking care to avoid sudden and excessive movements of the neck. Status: Acute
[2018-05-05] MEDS: Albuterol-Ipratrop 3 mg / 0.5 (3 ml) UD INH SCH ×4 (01:24→19:50)
[2018-05-05] MEDS: (Novolin R) Insulin Human Regular 100 units/ml vial SC SCH ×4 (07:49→22:11)
[2018-05-05] MEDS: (Novolog) Insulin Aspart, Recombinant 100 u/ml 10 ml vial SC SCH ×3 (07:49→17:56)
--- NOTE | 2018-05-05 07:50 | CP.PCM.PN ---
Subjective - Date & Time of Evaluation Date of Evaluation: 05/05/18 Time of Evaluation: 07:45 - Subjective Subjective: Patient denies having nausea, vomiting, abdominal pain, melena. Objective - Vital Signs/Intake and Output Vital Signs (last 24 hours): Temp Pulse Resp BP Pulse Ox 98.4 F 75 20 125/49 L 97 05/05/18 00:00 05/05/18 00:00 05/05/18 00:00 05/05/18 00:00 05/05/18 00:00 Intake and Output: 05/05/18 05/05/18 06:59 18:59 Intake Total 360 Output Total 250 Balance 110 - Medications Medications: Current Medications Acetaminophen (Tylenol 325mg Tab) 650 mg PO Q6 PRN PRN Reason: Pain, moderate (4-7) Last Admin: 05/01/18 08:07 Dose: 650 mg Albuterol/Ipratropium (Duoneb 3 Mg/0.5 Mg (3 Ml) Ud) 3 ml INH RQ6 [facility] Last Admin: 05/05/18 01:24 Dose: 3 ml Dextrose (Dextrose 50% Inj) 0 ml IV STAT PRN; Protocol PRN Reason: Hypoglycemia Protocol Dextrose (Glutose 15) 0 gm PO ONCE PRN; Protocol PRN Reason: Hypoglycemia Protocol Diphenhydramine HCl (Benadryl) 25 mg PO ONCE PRN PRN Reason: Prior to blood transfusion Last Admin: 04/28/18 18:08 Dose: 25 mg Doxazosin Mesylate (Cardura) 4 mg PO DAILY [facility] Glucagon (Glucagen Diagnostic Kit) 0 mg IM STAT PRN; Protocol PRN Reason: Hypoglycemia Protocol Insulin Aspart (Novolog) 10 unit SC AC [facility] Last Admin: 05/04/18 17:30 Dose: 10 u Insulin Detemir (Levemir) 25 unit SC DAILY [facility] Last Admin: 05/04/18 09:38 Dose: 25 unit Insulin Human Regular (Novolin R) 0 unit SC ACHS [facility]; Protocol Last Admin: 05/04/18 22:01 Dose: 2 units Losartan Potassium (Cozaar) 100 mg PO DAILY [facility] Last Admin: 05/04/18 09:38 Dose: 100 mg Metformin HCl (Glucophage) 500 mg PO BIDCC [facility] Last Admin: 05/04/18 17:32 Dose: 500 mg Pantoprazole Sodium (Protonix Inj) 40 mg IVP DAILY [facility] Last Admin: 05/04/18 09:37 Dose: 40 mg Tiotropium [place] (Spiriva) 18 mcg INH RQ24 [facility] Last Admin: 05/04/18 09:03 Dose: 18 mcg - Labs Labs: 05/04/18 06:56 05/02/18 19:45 PT 12.3 SECONDS (9.7-12.2) H 05/02/18 19:45 INR 1.1 05/02/18 19:45 APTT 32 SECONDS (21-34) 04/27/18 15:33 - Constitutional Appears: No Acute Distress - Head Exam Head Exam: ATRAUMATIC, NORMOCEPHALIC - Eye Exam Eye Exam: EOMI, PERRL - Neck Exam Neck Exam: absent: Lymphadenopathy, Thyromegaly - Respiratory Exam Respiratory Exam: NORMAL BREATHING PATTERN. absent: Rales, Rhonchi, Wheezes - Cardiovascular Exam Cardiovascular Exam: REGULAR RHYTHM, +S1, +S2. absent: Gallop, Rubs, Murmur - GI/Abdominal Exam GI & Abdominal Exam: Soft, Normal Bowel Sounds. absent: Tenderness, Mass, Organomegaly - Rectal Exam Rectal Exam: Deferred - Extremities Exam Extremities Exam: absent: Calf Tenderness, Pedal Edema Assessment and Plan (1) Iron deficiency anemia Assessment & Plan: After discussing the procedure with patient's daughter, we decided to postpone the EGD until a pediatric gastroscope is available. Endoscopy has arranged to borrow one from [facility], and it should be delivered later today. EGD has been rescheduled for tomorrow. Nurses notes mention a cervical collar; will check with Dr. Winn if he recommends a soft or hard collar. Status: Acute
[2018-05-05 08:20] LABS: BASO % 0.3 % (0.0-2.0); EOS # 0.2 K/uL (0.0-0.7); EOS % 2.5 % (0.0-4.0); HEMOGLOBIN 9.3 g/dL (12.0-18.0); LYMPH # 1.1 K/uL (1.0-4.3); LYMPH % 15.7 % (20.0-40.0); MEAN CELL VOLUME 83.1 fL (80.0-94.0); MEAN CORPUSCULAR HEMOGLOBIN 26.6 pg (27.0-31.0); MEAN PLATELET VOLUME 9.7 fL (7.2-11.7); MONO # 0.6 K/uL (0.0-0.8); MONO % 9.1 % (0.0-10.0); NEUT % 72.4 % (50.0-75.0); RBC 3.49 Mil/uL (4.40-5.90); RED CELL DISTRIBUTION WIDTH 20.1 % (11.5-14.5); WHITE BLOOD COUNT 6.9 K/uL (4.8-10.8)
[2018-05-05] MEDS: Tiotropium 18 mcg Cap For Inhalation INH SCH (08:39)
[2018-05-05] MEDS: Insulin Detemir 100 units/ml Vial (Levemir) SC SCH ×2 (09:33→16:24)
[2018-05-05 11:45] LABS: ALB/GLOB RATIO 1.4 (1.0-2.1); ALT/SGPT 20 U/L (21-72); AST/SGOT 20 U/L (17-59); BLOOD UREA NITROGEN 26 mg/dL (9-20); CALCIUM 9.4 mg/dl (8.6-10.4); GFR NON-AFRICAN AMERICAN 59
--- NOTE | 2018-05-05 13:14 | CP.PCM.PN ---
Subjective - Date & Time of Evaluation Date of Evaluation: 05/05/18 Time of Evaluation: 13:14 - Subjective Subjective: PT reports feeling well good appetite no n/v no chest pain no chills Objective - Vital Signs/Intake and Output Vital Signs (last 24 hours): Temp Pulse Resp BP Pulse Ox 97.9 F 73 20 157/73 H 97 05/05/18 07:15 05/05/18 07:15 05/05/18 07:15 05/05/18 07:15 05/05/18 07:15 Intake and Output: 05/05/18 05/05/18 06:59 18:59 Intake Total 360 Output Total 250 Balance 110 - Medications Medications: Current Medications Acetaminophen (Tylenol 325mg Tab) 650 mg PO Q6 PRN PRN Reason: Pain, moderate (4-7) Last Admin: 05/01/18 08:07 Dose: 650 mg Albuterol/Ipratropium (Duoneb 3 Mg/0.5 Mg (3 Ml) Ud) 3 ml INH RQ6 [facility] Last Admin: 05/05/18 08:39 Dose: 3 ml Dextrose (Dextrose 50% Inj) 0 ml IV STAT PRN; Protocol PRN Reason: Hypoglycemia Protocol Dextrose (Glutose 15) 0 gm PO ONCE PRN; Protocol PRN Reason: Hypoglycemia Protocol Diphenhydramine HCl (Benadryl) 25 mg PO ONCE PRN PRN Reason: Prior to blood transfusion Last Admin: 04/28/18 18:08 Dose: 25 mg Doxazosin Mesylate (Cardura) 4 mg PO DAILY [facility] Last Admin: 05/05/18 12:23 Dose: 4 mg Glucagon (Glucagen Diagnostic Kit) 0 mg IM STAT PRN; Protocol PRN Reason: Hypoglycemia Protocol Insulin Aspart (Novolog) 10 unit SC AC [facility] Last Admin: 05/05/18 12:18 Dose: 10 u Insulin Detemir (Levemir) 30 unit SC DAILY [facility] Insulin Human Regular (Novolin R) 0 unit SC ACHS [facility]; Protocol Last Admin: 05/05/18 12:18 Dose: 8 units Losartan Potassium (Cozaar) 100 mg PO DAILY [facility] Last Admin: 05/05/18 09:32 Dose: 100 mg Metformin HCl (Glucophage) 850 mg PO BID [facility] Pantoprazole Sodium (Protonix Inj) 40 mg IVP DAILY [facility] Last Admin: 05/05/18 09:32 Dose: 40 mg Tiotropium [place] (Spiriva) 18 mcg INH RQ24 [facility] Last Admin: 05/05/18 08:39 Dose: 18 mcg - Labs Labs: 05/05/18 07:56 05/05/18 11:11 PT 12.3 SECONDS (9.7-12.2) H 05/02/18 19:45 INR 1.1 05/02/18 19:45 APTT 32 SECONDS (21-34) 04/27/18 15:33 - Constitutional Appears: Well, Non-toxic - Eye Exam Eye Exam: Normal appearance - ENT Exam ENT Exam: Mucous Membranes Moist - Respiratory Exam Respiratory Exam: Clear to Ausculation Bilateral - Cardiovascular Exam Cardiovascular Exam: REGULAR RHYTHM, +S1, +S2. absent: JVD - GI/Abdominal Exam GI & Abdominal Exam: Soft, Normal Bowel Sounds Assessment and Plan - Assessment and Plan (Free Text) Assessment: Iron def anemia sp 3 units prbc sp 2 iv iron infusion pt for EGD tomorrow seen by spine surgeon bp not ideal will add diuretic post procedure diabetes elevated sugars adjusted meds
[2018-05-06] MEDS: Albuterol-Ipratrop 3 mg / 0.5 (3 ml) UD INH SCH ×3 (03:20→13:41)
[2018-05-06] MEDS: (Novolog) Insulin Aspart, Recombinant 100 u/ml 10 ml vial SC SCH ×2 (07:30→11:30)
[2018-05-06] MEDS: (Novolin R) Insulin Human Regular 100 units/ml vial SC SCH ×2 (07:30→15:02)
[2018-05-06 07:56] LABS: HEMOGLOBIN 8.7 g/dL (12.0-18.0); MEAN CELL VOLUME 84.2 fL (80.0-94.0); MEAN CORPUSCULAR HEMOGLOBIN 27.3 pg (27.0-31.0); MEAN CORPUSCULAR HGB CONC 32.4 g/dL (33.0-37.0); MEAN PLATELET VOLUME 9.7 fL (7.2-11.7); RBC 3.19 Mil/uL (4.40-5.90); RED CELL DISTRIBUTION WIDTH 20.4 % (11.5-14.5); WHITE BLOOD COUNT 6.5 K/uL (4.8-10.8)
[2018-05-06 08:35] VITALS: O2SAT 99
[2018-05-06] MEDS ORDERED: Propofol 10 mg/ml Inj (20 ML) ONE (10:46)
[2018-05-06] MEDS ORDERED: Albuterol HFA 90 mcg/actuation (8 g) ONE (10:54)
[2018-05-06] MEDS ORDERED: Lidocaine Hydrochloride 5 ML INJ ONE (10:54)
[2018-05-06] MEDS ORDERED: Lactated Ringer's 1,000 ML IV ONE (10:55)
[2018-05-06] MEDS ORDERED: Lactated Ringer's 500 ML IV ONE (11:10)
[2018-05-06 12:26] VITALS: BP 124/57; PULSE 82; RESP 16; TEMP 98
[2018-05-06] MEDS: Tiotropium 18 mcg Cap For Inhalation INH SCH (13:41)
--- NOTE | 2018-05-06 13:44 | CT ---
Date of service: 05/06/2018 PROCEDURE: CT NECK WITHOUT CONTRAST HISTORY: R/O free Air COMPARISON: None available. TECHNIQUE: CT of the neck without intravenous contrast. Coronal and sagittal reformats generated. Radiation dose: Total exam DLP = 622.46 mGy-cm. This CT exam was performed using one or more of the following dose reduction techniques: Automated exposure control, adjustment of the mA and/or kV according to patient size, and/or use of iterative reconstruction technique. FINDINGS: NASOPHARYNX: Unremarkable. SUPRAHYOID NECK: Unremarkable oropharynx, oral cavity, parapharyngeal space and retropharyngeal space. INFRAHYOID NECK: Unremarkable larynx, hypopharynx, and supraglottic space. Vocal cords intact. MASS: None. GLANDS: Parotid and submandibular glands unremarkable. Normal size thyroid gland, without nodule. LYMPH NODES: Normal. No lymphadenopathy. 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 There is partial fusion of the anterior arch of C1 with the anterior border of the foramen magnum. OTHER FINDINGS: None. IMPRESSION: No evidence of interstitial air. Minor findings as above.
[2018-05-06] MEDS: Insulin Detemir 100 units/ml Vial (Levemir) SC SCH (15:01)
--- NOTE | 2018-05-15 20:00 | CP.PCM.DIS ---
Provider - Provider Date of Admission: 04/27/18 15:57 Attending physician: Autumn Jay MD Consults: 04/27/18 15:59 Gastroenterology Consult Stat Comment: Consulting Provider: Nasim Lambert Consulting Physician: Nasim Lambert Reason for Consult: anemia 04/27/18 18:28 Gastroenterology Consult Routine Comment: Consulting Provider: Nasim Lambert Consulting Physician: Nasim Lambert Reason for Consult: anemia Pulmonology Consult Routine Comment: Consulting Provider: Ky Dasilva Consulting Physician: Ky Dasilva Reason for Consult: copd 04/27/18 18:35 Physician Consult Routine Comment: Consulting Provider: Vijay Graf Consulting Physician: Vijay Graf Reason for Consult: +ckmb 05/01/18 14:22 Orthopedic Consult Routine Comment: Consulting Provider: Nasim Shields Consulting Physician: Nasim Shields Reason for Consult: ortho clearance for EGG, severe spinal stenosis 05/05/18 07:52 Physician Consult Routine Comment: Consulting Provider: Pradeep Winn Consulting Physician: Pradeep Winn Reason for Consult: Does patient need a soft or hard cervical collar for endoscopy Time Spent in preparation of Discharge (in minutes): 30 Hospital Course - Lab Results Lab Results: Most Recent Lab Values WBC 6.5 K/uL (4.8-10.8) 05/06/18 07:43 RBC 3.19 Mil/uL (4.40-5.90) L 05/06/18 07:43 Hgb 8.7 g/dL (12.0-18.0) L 05/06/18 07:43 Hct 26.9 % (35.0-51.0) L 05/06/18 07:43 MCV 84.2 fL (80.0-94.0) 05/06/18 07:43 MCH 27.3 pg (27.0-31.0) 05/06/18 07:43 MCHC 32.4 g/dL (33.0-37.0) L 05/06/18 07:43 RDW 20.4 % (11.5-14.5) H 05/06/18 07:43 Plt Count 256 K/uL (130-400) 05/06/18 07:43 MPV 9.7 fL (7.2-11.7) 05/06/18 07:43 Neut % (Auto) 72.4 % (50.0-75.0) 05/05/18 07:56 Lymph % (Auto) 15.7 % (20.0-40.0) L 05/05/18 07:56 [place] % (Auto) 9.1 % (0.0-10.0) 05/05/18 07:56 Eos % (Auto) 2.5 % (0.0-4.0) 05/05/18 07:56 Baso % (Auto) 0.3 % (0.0-2.0) 05/05/18 07:56 Neut # (Auto) 5.0 K/uL (1.8-7.0) 05/05/18 07:56 Lymph # (Auto) 1.1 K/uL (1.0-4.3) 05/05/18 07:56 [place] # (Auto) 0.6 K/uL (0.0-0.8) 05/05/18 07:56 Eos # (Auto) 0.2 K/uL (0.0-0.7) 05/05/18 07:56 Baso # (Auto) 0.0 K/uL (0.0-0.2) 05/05/18 07:56 Retic Count 2.6 % (0.5-1.5) H 04/28/18 11:30 PT 12.3 SECONDS (9.7-12.2) H 05/02/18 19:45 INR 1.1 05/02/18 19:45 APTT 32 SECONDS (21-34) 04/27/18 15:33 Sodium 136 mmol/L (132-148) 05/05/18 11:11 Potassium 4.3 mmol/L (3.6-5.2) 05/05/18 11:11 Chloride 98 mmol/L (98-107) 05/05/18 11:11 Carbon Dioxide 26 mmol/L (22-30) 05/05/18 11:11 Anion Gap 16 (10-20) 05/05/18 11:11 BUN 26 mg/dL (9-20) H 05/05/18 11:11 Creatinine 1.2 mg/dL (0.8-1.5) 05/05/18 11:11 Est GFR ( Amer) > 60 05/05/18 11:11 Est GFR (Non-Af Amer) 59 05/05/18 11:11 POC Glucose (mg/dL) 274 mg/dL (65-110) H 05/06/18 12:23 Random Glucose 399 mg/dL (75-110) H D 05/05/18 11:11 Calcium 9.4 mg/dl (8.6-10.4) 05/05/18 11:11 Phosphorus 3.0 mg/dL (2.5-4.5) 05/05/18 11:11 Magnesium 1.9 mg/dL (1.6-2.3) 05/05/18 11:11 Iron 20 ug/dL (49-181) L 04/28/18 11:30 TIBC 477 ug/dL (250-450) H 04/28/18 11:30 % Saturation 4 (20-55) L 04/28/18 11:30 Ferritin 5.3 ng/mL 04/28/18 11:30 Total Bilirubin 0.4 mg/dL (0.2-1.3) 05/05/18 11:11 AST 20 U/L (17-59) 05/05/18 11:11 ALT 20 U/L (21-72) L D 05/05/18 11:11 Alkaline Phosphatase 120 U/L (38-126) 05/05/18 11:11 Lactate Dehydrogenase 422 U/L (313-618) 05/01/18 08:03 Total Creatine Kinase 168 U/L (55-170) 04/28/18 11:30 CK-MB (Mass) 3.67 ng/mL (0.0-3.38) H 04/28/18 11:30 Troponin I < 0.0120 ng/mL (0.00-0.120) 04/28/18 11:30 NT-Pro-B Natriuret Pep 236 pg/mL (0-900) 04/27/18 15:33 Total Protein 6.8 g/dL (6.3-8.3) 05/05/18 11:11 Albumin 4.0 g/dL (3.5-5.0) 05/05/18 11:11 Globulin 2.8 gm/dL (2.2-3.9) 05/05/18 11:11 Albumin/Globulin Ratio 1.4 (1.0-2.1) 05/05/18 11:11 Vitamin B12 287 pg/mL (239-931) 04/28/18 11:30 Methylmalonic Acid <50 nmol/L (87-318) L 04/29/18 07:02 Folate 11.8 ng/mL 05/01/18 08:03 Stool Occult Blood Positive (NEGATIVE) H 04/29/18 14:35 Blood Type A POSITIVE 04/27/18 15:33 Blood Type Confirm A POSITIVE 04/27/18 15:33 Antibody Screen Negative 04/27/18 15:33 - Hospital Course Hospital Course: pt admitted with anemia transfused 3 units of blood due to hgb of 5 with symptoms pt also received 3 infusions of IV iron pt was evaluated by GI. Had EGd which showed not active bleeding pt ws sent home for outpt colonoscopy Discharge Exam - Head Exam Head Exam: ATRAUMATIC, NORMOCEPHALIC - Eye Exam Eye Exam: Normal appearance - ENT Exam ENT Exam: Mucous Membranes Moist - Respiratory Exam Respiratory Exam: Clear to PA & Lateral Discharge Plan - Discharge Medications Prescriptions: Doxazosin [Cardura] 4 mg PO DAILY #30 tab Docusate Sodium [Colace] 100 mg PO BID #60 capsule Ferrous Sulfate 325 mg PO TID #90 tablet - Follow Up Plan Condition: GUARDED Additional Instructions: Please f/u with Dr. Jay office on Tuesday at 1 pm Please stop taking flomax Please continue medication as per med. rec.
== END 2018-05-06 17:46 | disposition home or self-care (01) | DRG 812 ==
LOC: C.ER 14:46 → C.9E 15:57 → C.6T 18:24
PROVIDERS: ADMIT Internal Medicine; ATTEND Internal Medicine
PROC: 0DB68ZX Excision of Stomach, Via Natural or Artificial Opening Endoscopic, Diagnostic (ICD-10-PCS; principal; 2018-04-27)
PROC: 30233N1 Transfusion of Nonautologous Red Blood Cells into Peripheral Vein, Percutaneous Approach (ICD-10-PCS; 2018-04-27)
DX: D50.9 Iron deficiency anemia, unspecified (principal); E11.22 Type 2 diabetes mellitus with diabetic chronic kidney disease; I12.9 Hypertensive chronic kidney disease with stage 1 through stage 4 chronic kidney disease, or unspecified chronic kidney disease; E78.00 Pure hypercholesterolemia, unspecified; E78.5 Hyperlipidemia, unspecified; F17.200 Nicotine dependence, unspecified, uncomplicated; G62.9 Polyneuropathy, unspecified; I25.10 Atherosclerotic heart disease of native coronary artery without angina pectoris; J43.9 Emphysema, unspecified; M48.02 Spinal stenosis, cervical region; N18.9 Chronic kidney disease, unspecified; R74.8 Abnormal levels of other serum enzymes; K44.9 Diaphragmatic hernia without obstruction or gangrene; K29.50 Unspecified chronic gastritis without bleeding; K57.90 Diverticulosis of intestine, part unspecified, without perforation or abscess without bleeding; Q76.49 Other congenital malformations of spine, not associated with scoliosis; Z80.0 Family history of malignant neoplasm of digestive organs; Z86.73 Personal history of transient ischemic attack (TIA), and cerebral infarction without residual deficits; Z95.5 Presence of coronary angioplasty implant and graft

== ENCOUNTER 2018-05-15 06:57 | Day surgery (SDC) | payer MEDICARE ==
[2018-05-15 07:29] VITALS: O2SAT 100
[2018-05-15] MEDS ORDERED: Lactated Ringer's 1,000 ML IV ONE (08:05)
[2018-05-15] MEDS ORDERED: Propofol 10 mg/ml Inj (20 ML) ONE (08:11)
[2018-05-15] MEDS ORDERED: Lidocaine Hydrochloride 5 ML INJ ONE (08:11)
--- NOTE | 2018-05-15 08:11 | CP.SDSHP ---
Same Day Surgery H & P - History Proposed Procedure: Colonoscopy Pre-Op Diagnosis: Fecal occult blood positive - Previous Medical/Surgical History Cardiac: Hypertension Endocrine/Metabolic: Diabetes - Allergies Allergies: Allergies Sulfa (Sulfonamide Antibiotics) Allergy (Severe, Verified 04/27/18 14:54) ANAPHYLAXIS Beta-Blockers (Beta-Adrenergic Bloc Allergy (Verified 04/27/18 20:03) ANAPHYLAXIS - Current Medications Current Medications: See reconciliation sheet - Physical Exam General Appearance: WD WN male in NAD Vital Signs: Vital Signs 05/15/18 07:18 Temperature 99 F Pulse Rate 95 H Respiratory 18 Rate Blood Pressure 146/56 L O2 Sat by Pulse 100 Oximetry Mental Status: Alert & Oriented x3 Neuro: WNL Heart: WNL Lungs: WNL GI: WNL - {Optional Preform as Required} Abdomen: WNL - Impression Impression: Fecal occult blood positive Pt. Evaluated Today:Candidate for Anesthesia & Procedure: Yes - Date & Time Date: 05/15/18 Time: 08:11 Short Stay Discharge - Short Stay Discharge Admitting Diagnosis/Reason for Visit: OCCULT BLOOD Disposition: HOME/ ROUTINE
[2018-05-15] MEDS ORDERED: Sodium Chloride 0.9% 20 ML IV ONE (08:36)
[2018-05-15 09:17] VITALS: TEMP 98.4
[2018-05-15 10:00] VITALS: BP 135/52; PULSE 68; RESP 8
== END 2018-05-15 10:30 | disposition home or self-care (01) ==
LOC: C.ENDO 06:57
PROVIDERS: ATTEND Internal Medicine Gastroenterology
DX: K57.30 Diverticulosis of large intestine without perforation or abscess without bleeding (principal); R19.5 Other fecal abnormalities; K55.20 Angiodysplasia of colon without hemorrhage; E11.9 Type 2 diabetes mellitus without complications; I10 Essential (primary) hypertension
CPT/HCPCS: 45381; 82948; J0171; J2704; J7120